=== PATIENT | female | born 1930 | race Caucasian/White ===

== ENCOUNTER → 2017-03-10 | Outpatient (CLI) | payer MEDICARE ==
--- NOTE | 2017-03-11 13:34 | MM ---
Reason for exam: screening (asymptomatic). Last mammogram was performed 1 year and 2 months ago. History: Patient is postmenopausal. Benign excisional biopsy of the left breast. Took hormonal contraceptives for 10 years beginning at age 41. Physical Findings: A clinical breast exam by your physician is recommended on an annual basis and results should be correlated with mammographic findings. MG Screening Mammo w CAD Bilateral CC and MLO view(s) were taken. Prior study comparison: January 12, 2016, bilateral MG 3d screening mammo w/cad. October 09, 2014, bilateral MG diagnostic mammo w CAD [facility]. The breast tissue is heterogeneously dense. This may lower the sensitivity of mammography. Asymmetric breast tissue greater in the left breast. No significant changes when compared with prior studies. ASSESSMENT: Benign, BI-RAD 2 RECOMMENDATION: Routine screening mammogram of both breasts in 1 year.
== END | disposition home or self-care (01) ==
LOC: RADMAMWWP 10:53
PROVIDERS: ATTEND Internal Medicine
DX: Z12.31 Encounter for screening mammogram for malignant neoplasm of breast (principal)
CPT/HCPCS: 77067

== ENCOUNTER 2017-12-09 07:05 | Emergency (ER) | payer MEDICARE ==
[2017-12-09 07:13] VITALS: BP 168/106; PULSE 75; RESP 18; TEMP 97.6
--- NOTE | 2017-12-09 07:37 | ED ---
Headache HPI - General Chief Complaint: Headache Stated Complaint: Headache, Confused last night Time Seen by Provider: 12/09/17 07:17 Source: RN notes reviewed, old records reviewed Mode of arrival: ambulatory Limitations: no limitations - History of Present Illness Initial Comments: This is an 87-year-old female the ER for evaluation. Patient comes in for evasive headache although no current headache. Patient concern for brain bleed. Patient states she's had similar symptoms in the past. She has nausea and some headache is last night, she states last time she had similar symptoms she did have a positive brain bleed. Patient currently denies headache. Denies abdominal pain nausea vomiting. Patient is recent diagnosis of UTI did start Cipro yesterday as well. MD Complaint: headache -: days(s) (1) Onset Description: now resolved Location: diffuse Severity: mild Severity scale (1-10): 3 Quality: aching Consistency: now resolved Improves With: nothing Worsens With: none Context: occurred at rest Associated Symptoms: nausea - Related Data Home Medications Medication Instructions Recorded Confirmed Metoprolol Tartrate [Lopressor] 12.5 mg PO BID-W/MEALS 12/11/13 12/09/17 Omeprazole [PriLOSEC] 40 mg PO HS 12/11/13 12/09/17 Acetaminophen Tab [Tylenol Tab] 500 mg PO Q6HR PRN 12/09/17 12/09/17 Aspirin EC [Ecotrin Low Dose] 162 mg PO HS 12/09/17 12/09/17 Regis/D3/Mag11/Zinc/Laundry Housekeeping Aide/Bryan/Bor 1 tab PO BID-W/MEALS 12/09/17 12/09/17 [Caltrate 600+D Plus Tablet] Ciprofloxacin HCl [Cipro] 250 mg PO Q12HR 12/09/17 12/09/17 Fluticasone Propionate 2 spray EA NOSTRIL HS 12/09/17 12/09/17 Levothyroxine Sodium [Synthroid] 100 mcg PO MOTUWETHFRSA 12/09/17 12/09/17 Levothyroxine Sodium [Synthroid] 200 mcg PO MADRIGAL 12/09/17 12/09/17 Loratadine [Claritin] 10 mg PO DAILY PRN 12/09/17 12/09/17 Vitamin B Complex 1 cap PO DAILY 12/09/17 12/09/17 Allergies Allergy/AdvReac Type Severity Reaction Status Date / Time Penicillins Allergy Swelling Verified 12/09/17 07:59 Review of Systems ROS Statement: Those systems with pertinent positive or pertinent negative responses have been documented in the HPI. ROS Other: All systems not noted in ROS Statement are negative. Past Medical History Past Medical History: Atrial Fibrillation, Hyperlipidemia, Hypertension, Thyroid Disorder Additional Past Medical History / Comment(s): hx of brain bleed. History of Any Multi-Drug Resistant Organisms: None Reported Past Surgical History: Orthopedic Surgery Additional Past Surgical History / Comment(s): THYROIDECTOMY, LEFT KNEE REPLACEMENT Past Psychological History: No Psychological Hx Reported Smoking Status: Former smoker Past Alcohol Use History: Daily Past Drug Use History: None Reported General Exam Limitations: no limitations General appearance: alert, in no apparent distress Head exam: Present: atraumatic, normocephalic, normal inspection Eye exam: Present: normal appearance, PERRL, EOMI. Absent: scleral icterus, conjunctival injection, periorbital swelling ENT exam: Present: normal exam, mucous membranes moist Neck exam: Present: normal inspection. Absent: tenderness, meningismus, lymphadenopathy Respiratory exam: Present: normal lung sounds bilaterally. Absent: respiratory distress, wheezes, rales, rhonchi, stridor Cardiovascular Exam: Present: regular rate, normal rhythm, normal heart sounds. Absent: systolic murmur, diastolic murmur, rubs, gallop, clicks GI/Abdominal exam: Present: soft, normal bowel sounds. Absent: distended, tenderness, guarding, rebound, rigid Extremities exam: Present: normal inspection, full ROM, normal capillary refill. Absent: tenderness, pedal edema, joint swelling, calf tenderness Back exam: Present: normal inspection Neurological exam: Present: alert, oriented X3, CN II-XII intact Psychiatric exam: Present: normal affect, normal mood Skin exam: Present: warm, dry, intact, normal color. Absent: rash Course Vital Signs 12/09/17 07:09 Temperature 97.6 F Pulse Rate 75 Respiratory 18 Rate Blood Pressure 168/106 O2 Sat by Pulse 98 Oximetry - Reevaluation(s) Reevaluation #1: Record is reviewed Spoke with patient at length regarding symptoms. Patient states and she denies any current headache, no neurological deficit. No active nausea vomiting. Patient spoke at length regarding CT findings, she is relieved to hear of findings. Patient states she feels good to go home Medical Decision Making - Medical Decision Making 87-year-old female the ER with nonspecific headache and nausea. Symptoms occurred last night are now resolved. She is on Cipro for outpatient or bladder , possible medication reaction although this time patient feels like symptoms are improved and patient can be discharged home - Radiology Data Radiology results: report reviewed (CT brain negative for acute disease), image reviewed Disposition Clinical Impression: Headache Disposition: HOME SELF-CARE Condition: Good Instructions: Acute Headache (ED) Is patient prescribed a controlled substance at d/c from ED?: No Referrals: Gina Saavedra MD [Primary Care Provider] - 1-2 days
[2017-12-09] MEDS: SODIUM CHLORIDE 0.9% 1,000 ML IV STA ×2 (07:41)
--- NOTE | 2017-12-09 07:48 | CT ---
EXAMINATION TYPE: CT brain wo con DATE OF EXAM: 12/09/2017 COMPARISON: 01/21/2014 INDICATION: Headache DLP: 1152.4 mGycm, Automated exposure control for dose reduction was used. CONTRAST: None CT of the brain is performed utilizing 3 mm thick sections through the posterior fossa and 3 mm thick sections through the remaining calvarium. Study is performed within 24 hours of arrival to the hosp ital. No abnormal hyperdensity is present to suggest an acute intracranial hemorrhage. No mass lesion is evident. No acute infarcts are evident. Periventricular white matter hypodensity is present, likely on the bas is of chronic white matter ischemic changes. No significant interval changes evident. Ventricles and sulci are appropriate for the patient age. Paranasal sinuses within the [id number] are clear. Right mastoid air cells are opacified compatibl e with right mastoiditis. Left mastoid air cells are clear. IMPRESSIONS: 1. Periventricular white matter ischemic type changes with age-related atrophy. 2. Correlate for right mastoiditis
== END 2017-12-09 08:32 | disposition home or self-care (01) ==
LOC: EC 07:05
DX: R51 Headache (principal); R11.0 Nausea; I48.91 Unspecified atrial fibrillation; I10 Essential (primary) hypertension; Z79.82 Long term (current) use of aspirin; Z79.51 Long term (current) use of inhaled steroids; Z79.899 Other long term (current) drug therapy; Z88.0 Allergy status to penicillin; Z87.891 Personal history of nicotine dependence; Z96.652 Presence of left artificial knee joint
CPT/HCPCS: 70450; 99284

== ENCOUNTER 2018-01-01 20:45 | Emergency (ER) | payer MEDICARE ==
[2018-01-01 20:51] VITALS: TEMP 97.7
--- NOTE | 2018-01-01 21:21 | ED ---
Fall HPI - General Chief Complaint: Fall Stated Complaint: Fell Time Seen by Provider: 01/01/18 21:07 Source: patient Mode of arrival: wheelchair - History of Present Illness Initial Comments: 87-year-old female patient presents to the emergency department today for evaluation of left wrist pain and low back pain after expressing a fall today. Patient states around 1 PM she lost her balance and fell down 2 steps while she was trying to put up [place] lights. Patient states that she injured her left wrist and has been having increased pain to her low back. Patient denies hitting her head or losing consciousness with the fall. States that she is having some numbness and tingling to the thumb and forefinger on the left hand. She denies any pain radiation from her back to her legs. Denies any numbness , tingling, saddle anesthesia, loss of bowel or bladder control. Denies any other injuries. Patient denies any headache, neck pain, chest pain, shortness of breath, dizziness, weakness, abdominal pain, nausea, vomiting, or difficulties with bowel movements or urination. - Related Data Home Medications Medication Instructions Recorded Confirmed Metoprolol Tartrate [Lopressor] 12.5 mg PO BID-W/MEALS 12/11/13 12/09/17 Omeprazole [PriLOSEC] 40 mg PO HS 12/11/13 12/09/17 Acetaminophen Tab [Tylenol Tab] 500 mg PO Q6HR PRN 12/09/17 12/09/17 Aspirin EC [Ecotrin Low Dose] 162 mg PO HS 12/09/17 12/09/17 Regis/D3/Mag11/Zinc/Diver Tender/Bryan/Bor 1 tab PO BID-W/MEALS 12/09/17 12/09/17 [Caltrate 600+D Plus Tablet] Ciprofloxacin HCl [Cipro] 250 mg PO Q12HR 12/09/17 12/09/17 Fluticasone Propionate 2 spray EA NOSTRIL HS 12/09/17 12/09/17 Levothyroxine Sodium [Synthroid] 100 mcg PO MOTUWETHFRSA 12/09/17 12/09/17 Levothyroxine Sodium [Synthroid] 200 mcg PO MADRIGAL 12/09/17 12/09/17 Loratadine [Claritin] 10 mg PO DAILY PRN 12/09/17 12/09/17 Vitamin B Complex 1 cap PO DAILY 12/09/17 12/09/17 Allergies Allergy/AdvReac Type Severity Reaction Status Date / Time ciprofloxacin [From Cipro] Allergy Unknown Verified 01/01/18 20:51 Penicillins Allergy Swelling Verified 01/01/18 20:51 Review of Systems ROS Statement: Those systems with pertinent positive or pertinent negative responses have been documented in the HPI. ROS Other: All systems not noted in ROS Statement are negative. Past Medical History Past Medical History: Atrial Fibrillation, Hyperlipidemia, Hypertension, Thyroid Disorder Additional Past Medical History / Comment(s): hx of brain bleed. History of Any Multi-Drug Resistant Organisms: None Reported Past Surgical History: Orthopedic Surgery Additional Past Surgical History / Comment(s): THYROIDECTOMY, LEFT KNEE REPLACEMENT Past Psychological History: No Psychological Hx Reported Smoking Status: Former smoker Past Alcohol Use History: Daily Past Drug Use History: None Reported General Exam Limitations: no limitations General appearance: alert, in no apparent distress, other (This is a well- developed, well-nourished elderly female patient in no acute distress. Vital signs upon presentation are temperature 97.7F, pulse 103, respirations 18, blood pressure 155/95, pulse ox 96% on room air.) Eye exam: Present: normal appearance, PERRL, EOMI. Absent: scleral icterus, conjunctival injection, periorbital swelling ENT exam: Present: normal exam, normal oropharynx, mucous membranes moist Neck exam: Present: normal inspection, full ROM, other (Nontender, no step-off, no deformity to firm midline palpation of the posterior cervical spine. Full range of motion without pain or limitation.). Absent: tenderness, meningismus, lymphadenopathy Respiratory exam: Present: normal lung sounds bilaterally. Absent: respiratory distress, wheezes, rales, rhonchi, stridor Cardiovascular Exam: Present: regular rate, normal rhythm, normal heart sounds. Absent: systolic murmur, diastolic murmur, rubs, gallop, clicks GI/Abdominal exam: Present: soft, normal bowel sounds. Absent: distended, tenderness, guarding, rebound, rigid Extremities exam: Present: full ROM, tenderness (Tenderness over the radial aspect of the left wrist), normal capillary refill, other (Patient has swelling and ecchymosis noted over the radial aspect of the left wrist. She has no anatomical snuffbox tenderness. Skin is otherwise pink, warm, and dry. Cap refills less than 3 seconds. Radial pulses 2+ and equal bilaterally.). Absent : normal inspection, pedal edema, joint swelling, calf tenderness Back exam: Present: normal inspection, vertebral tenderness (Lumbar tenderness) , other (No surface trauma noted to the back.) Neurological exam: Present: alert, oriented X3, CN II-XII intact Psychiatric exam: Present: normal affect, normal mood Skin exam: Present: warm, dry, intact, normal color. Absent: rash Course Vital Signs 01/01/18 01/01/18 20:47 22:29 Temperature 97.7 F Pulse Rate 103 H 73 Respiratory 18 20 Rate Blood Pressure 155/95 164/103 O2 Sat by Pulse 96 94 L Oximetry Medical Decision Making - Medical Decision Making 87-year-old female patient presented to the emergency department today for evaluation of left wrist pain and low back pain after expressing a fall at home. Physical examination did reveal ecchymosis and swelling to the left wrist especially over the radial aspect. Patient had no anatomical snuffbox tenderness. Neurovascular status was intact. X-rays of the left ear showed no evidence for acute fracture dislocation. Patient is also reporting increased low back pain, she had no lumbar spinal tenderness however x-rays were performed and showed no evidence of fractures. Did discuss findings and results with the patient. She is still reporting some numbness and tingling to the right thumb and index finger. We did place her in an [place] wrap, she is instructed to follow-up with orthopedics for further evaluation of this in 1-2 days. She does have a prescription for [place] at home which she is encouraged to use if necessary. She is educated regarding ice and elevation. Return parameters were discussed in detail. She verbalizes understanding and agrees this plan. - Radiology Data Radiology results: report reviewed, image reviewed Left wrist x-rays were obtained. Report was reviewed in its entirety. Impression by Dr. Marcial reveals no acute fracture dislocation the left wrist. 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 4 views of the lumbosacral spine are obtained. Report was reviewed in its entirety. Impression by Dr. Marcial shows diffuse osseous demineralization. Grade 1 anterolisthesis of L4 on L5, moderate multilevel degenerative disc disease, and there is slight levoscoliotic curvature of the thoracolumbar junction. No acute fracture seen in the lumbar spine. Disposition Clinical Impression: Left wrist sprain, Contusion of left wrist, Low back strain Disposition: HOME SELF-CARE Condition: Good Instructions: Fall Prevention for Older Adults (ED), Low Back Strain (ED), Wrist Sprain (ED) Additional Instructions: Apply ice to the painful areas. Keep left wrist elevated. Follow-up with orthopedic brace maker in 2 days if symptoms are not improved. The phone number for the orthopedic brace maker has been provided below. Return immediately for any new, worsening, or concerning symptoms. Is patient prescribed a controlled substance at d/c from ED?: No Referrals: Gina Saavedra MD [Primary Care Provider] - 1-2 days Geraldo Silva MD [STAFF PHYSICIAN] - 1-2 days Time of Disposition: 22:52
--- NOTE | 2018-01-01 21:41 | XR ---
EXAMINATION TYPE: XR lumbosacral spine min 4V DATE OF EXAM: 01/01/2018 CLINICAL HISTORY: Fall and back pain TECHNIQUE: Frontal, lateral, and oblique images of the lumbar spine are obtained. COMPARISON: None FINDINGS: There is diffuse osseous demineralization. There are 5 lumbar type vertebral bodies identi fied. There is grade 1 anterolisthesis of L4 on L5.. Vertebral body heights and disk space heights ar e within normal limits. Multilevel moderate degenerative changes of the spine are seen as facet arthr opathy, intervertebral disc space narrowing and anterior osteophytes. The overlying soft tissue appea rs unremarkable. Extensive atherosclerosis is seen in the abdominal aorta and its branches. Oblique i mages suggest mild neural foraminal narrowing at L3-L4 on the right and left. IMPRESSION: Diffuse osseous. Grade 1 anterolisthesis of L4 on L5, moderate multilevel degenerative di sc disease, and there is slight levoscoliotic curvature of the thoracolumbar junction. No acute fract ure is seen in the lumbar spine.
--- NOTE | 2018-01-01 21:47 | XR ---
EXAMINATION TYPE: XR wrist complete LT DATE OF EXAM: 01/01/2018 CLINICAL HISTORY: Left wrist pain after fall down the stairs TECHNIQUE: Frontal, lateral and oblique images of the left wrist are obtained. Scaphoid view was als o obtained. COMPARISON: None FINDINGS: There is diffuse osseous demineralization. There is no acute fracture/dislocation evident i n the left wrist. The joint spaces in the left wrist demonstrate extensive arthropathy at the radial carpal carpal interspaces and carpometacarpal joint. Faint calcification of the triangular fibrocart ilage is also seen, likely on a degenerative basis.. The overlying soft tissue appears unremarkable. IMPRESSION: There is no acute fracture or dislocation in the left wrist. Diffuse osseous demineraliz ation and left wrist arthropathy are seen.
[2018-01-01 22:31] VITALS: BP 164/103; PULSE 73; RESP 20
== END 2018-01-01 23:11 | disposition home or self-care (01) ==
LOC: EC 20:45
DX: S39.012A Strain of muscle, fascia and tendon of lower back, initial encounter (principal); S60.212A Contusion of left wrist, initial encounter; I48.91 Unspecified atrial fibrillation; E78.5 Hyperlipidemia, unspecified; I10 Essential (primary) hypertension; E07.9 Disorder of thyroid, unspecified; Z87.891 Personal history of nicotine dependence; Z79.82 Long term (current) use of aspirin; Z79.899 Other long term (current) drug therapy; Z88.0 Allergy status to penicillin; Z88.1 Allergy status to other antibiotic agents; Z96.652 Presence of left artificial knee joint; W10.9XXA Fall (on) (from) unspecified stairs and steps, initial encounter; Y92.009 Unspecified place in unspecified non-institutional (private) residence as the place of occurrence of the external cause
CPT/HCPCS: 72110; 99283

== ENCOUNTER 2018-09-02 16:45 | Inpatient (IN) | payer MEDICARE ==
[2018-09-02] MEDS ORDERED: ASPIRIN 81 MG PO STA (17:09)
--- NOTE | 2018-09-02 17:34 | ED ---
General Adult HPI - General Chief complaint: Altered Mental Status Stated complaint: CONFUSION Time Seen by Provider: 09/02/18 17:00 Source: patient Limitations: no limitations - History of Present Illness Initial comments: Patient is an 88-year-old female presents with a chief complaint of intermittent confusion. She is here with her neighbor who states that this morning she was out in her yard yelling for help because she forgot how to turn the shower off. Patient states she is intermittently forgetting how to perform simple tasks. Patient denies any pain, focal neurological deficit, she states she has been mildly nauseated but denies any other review of systems. - Related Data Home Medications Medication Instructions Recorded Confirmed Metoprolol Tartrate [Lopressor] 12.5 mg PO BID-W/MEALS 12/11/13 09/02/18 Omeprazole [PriLOSEC] 40 mg PO HS 12/11/13 09/02/18 Aspirin EC [Ecotrin Low Dose] 162 mg PO HS 12/09/17 09/02/18 Regis/D3/Mag11/Zinc/Procurement Internship/Bryan/Bor 1 tab PO BID-W/MEALS 12/09/17 09/02/18 [Caltrate 600+D Plus Tablet] Fluticasone Propionate 2 spray EA NOSTRIL HS 12/09/17 09/02/18 Levothyroxine Sodium [Synthroid] 100 mcg PO MOTUWETHFRSA 12/09/17 09/02/18 Levothyroxine Sodium [Synthroid] 200 mcg PO MADRIGAL 12/09/17 09/02/18 Vitamin B Complex 1 cap PO DAILY 12/09/17 09/02/18 Albuterol Inhaler [Ventolin Hfa 1 - 2 puff INHALATION RT-HS 09/02/18 09/02/18 Inhaler] Ergocalciferol (Vitamin D2) 50,000 unit PO TU 09/02/18 09/02/18 [Drisdol] Losartan [Cozaar] 50 mg PO DAILY 09/02/18 09/02/18 Mirtazapine [Remeron] 15 mg PO DAILY@1900 09/02/18 09/02/18 Multivit-Min/FA/Lycopen/Lutein 1 tab PO W/LUNCH 09/02/18 09/02/18 [Centrum Silver Tablet] Spironolact/Hydrochlorothiazid 1 tab PO DAILY 09/02/18 09/02/18 [Aldactazide 25-25 MG] Allergies Allergy/AdvReac Type Severity Reaction Status Date / Time ciprofloxacin [From Cipro] Allergy Unknown Verified 09/02/18 18:00 Penicillins Allergy Swelling Verified 09/02/18 18:00 Review of Systems ROS Statement: Those systems with pertinent positive or pertinent negative responses have been documented in the HPI. ROS Other: All systems not noted in ROS Statement are negative. Gastrointestinal: Reports: nausea Neurological: Reports: confusion Past Medical History Past Medical History: Atrial Fibrillation, Hyperlipidemia, Hypertension, Thyroid Disorder Additional Past Medical History / Comment(s): hx of brain bleed. History of Any Multi-Drug Resistant Organisms: None Reported Past Surgical History: Orthopedic Surgery Additional Past Surgical History / Comment(s): THYROIDECTOMY, LEFT KNEE REPLACEMENT Past Psychological History: No Psychological Hx Reported Smoking Status: Former smoker Past Alcohol Use History: Daily Past Drug Use History: None Reported General Exam Limitations: no limitations General appearance: alert, in no apparent distress Head exam: Present: atraumatic, normocephalic Eye exam: Present: normal appearance, PERRL, EOMI ENT exam: Present: normal exam Neck exam: Present: normal inspection Respiratory exam: Present: normal lung sounds bilaterally. Absent: respiratory distress, wheezes Cardiovascular Exam: Present: regular rate, normal rhythm GI/Abdominal exam: Present: soft. Absent: distended, tenderness Rectal exam: Present: deferred Extremities exam: Present: normal inspection Back exam: Present: normal inspection Neurological exam: Present: alert, oriented X3 Psychiatric exam: Present: normal affect, normal mood Skin exam: Present: warm, dry, intact Course Vital Signs 09/02/18 16:50 Temperature 98.3 F Pulse Rate 121 H Respiratory 20 Rate Blood Pressure 147/85 O2 Sat by Pulse 96 Oximetry Medical Decision Making - Medical Decision Making Patient presents with chief complaint of intermittent confusion. On initial evaluation, vital signs are stable, patient is in no acute distress. EKG perfo rmed at 1702 shows atrial fibrillation with a rate of 95 bpm, seconds are otherwise within normal limits, no acute ischemic findings. Patient reevaluated basic labs including computed tomography scan of the head, chest x-ray, urinalysis, and cardiac enzymes. Laboratory evaluation of this patient shows hyponatremia and hyperkalemia. Hyponatremia may be causing the patient's intermittent confusion. There is no evidence of infection or urinary tract infection. Lab results discussed with the patient, and her family. They're agreeable to admission. Patient was given IV hydration. Case discussed with the admitting team, they're agreeable to admission. Further management per - Lab Data Result diagrams: 09/02/18 17:08 09/02/18 17:08 Lab Results 09/02/18 09/02/18 09/02/18 Range/Units 17:08 17:08 17:08 WBC 5.9 (3.8-10.6) k/uL RBC 4.35 (3.80-5.40) m/uL Hgb 14.3 (11.4-16.0) gm/dL Hct 42.8 (34.0-46.0) % MCV 98.4 (80.0-100.0) fL MCH 32.9 (25.0-35.0) pg MCHC 33.4 (31.0-37.0) g/dL RDW 14.5 (11.5-15.5) % Plt Count 193 (150-450) k/uL Neutrophils % 78 % Lymphocytes % 11 % Monocytes % 6 % Eosinophils % 2 % Basophils % 0 % Neutrophils # 4.6 (1.3-7.7) k/uL Lymphocytes # 0.6 L (1.0-4.8) k/uL Monocytes # 0.4 (0-1.0) k/uL Eosinophils # 0.1 (0-0.7) k/uL Basophils # 0.0 (0-0.2) k/uL Sodium 124 L (137-145) mmol/L Potassium 5.3 H (3.5-5.1) mmol/L Chloride 90 L (98-107) mmol/L Carbon Dioxide 22 (22-30) mmol/L Anion Gap 12 mmol/L BUN 23 H (7-17) mg/dL Creatinine 0.92 (0.52-1.04) mg/dL Est GFR (CKD-EPI)AfAm 65 (>60 ml/min/1.73 sqM) Est GFR (CKD-EPI)NonAf 56 (>60 ml/min/1.73 sqM) Glucose 123 H (74-99) mg/dL Calcium 9.8 (8.4-10.2) mg/dL Total Bilirubin 1.2 (0.2-1.3) mg/dL AST 35 (14-36) U/L ALT 27 (9-52) U/L Alkaline Phosphatase 90 (38-126) U/L Troponin I (0.000-0.034) ng/mL NT-Pro-B Natriuret Pep 2070 pg/mL Total Protein 7.4 (6.3-8.2) g/dL Albumin 4.4 (3.5-5.0) g/dL Urine Color Urine Appearance (Clear) Urine pH (5.0-8.0) Ur Specific [place] (1.001-1.035) Urine Protein (Negative) Urine Glucose (UA) (Negative) Urine Ketones (Negative) Urine Blood (Negative) Urine Nitrite (Negative) Urine Bilirubin (Negative) Urine Urobilinogen (<2.0) mg/dL Ur Leukocyte Esterase (Negative) 09/02/18 09/02/18 Range/Units 17:08 17:27 WBC (3.8-10.6) k/uL RBC (3.80-5.40) m/uL Hgb (11.4-16.0) gm/dL Hct (34.0-46.0) % MCV (80.0-100.0) fL MCH (25.0-35.0) pg MCHC (31.0-37.0) g/dL RDW (11.5-15.5) % Plt Count (150-450) k/uL Neutrophils % % Lymphocytes % % Monocytes % % Eosinophils % % Basophils % % Neutrophils # (1.3-7.7) k/uL Lymphocytes # (1.0-4.8) k/uL Monocytes # (0-1.0) k/uL Eosinophils # (0-0.7) k/uL Basophils # (0-0.2) k/uL Sodium (137-145) mmol/L Potassium (3.5-5.1) mmol/L Chloride (98-107) mmol/L Carbon Dioxide (22-30) mmol/L Anion Gap mmol/L BUN (7-17) mg/dL Creatinine (0.52-1.04) mg/dL Est GFR (CKD-EPI)AfAm (>60 ml/min/1.73 sqM) Est GFR (CKD-EPI)NonAf (>60 ml/min/1.73 sqM) Glucose (74-99) mg/dL Calcium (8.4-10.2) mg/dL Total Bilirubin (0.2-1.3) mg/dL AST (14-36) U/L ALT (9-52) U/L Alkaline Phosphatase (38-126) U/L Troponin I <0.012 (0.000-0.034) ng/mL NT-Pro-B Natriuret Pep pg/mL Total Protein (6.3-8.2) g/dL Albumin (3.5-5.0) g/dL Urine Color Yellow Urine Appearance Clear (Clear) Urine pH 6.5 (5.0-8.0) Ur Specific [place] 1.012 (1.001-1.035) Urine Protein Negative (Negative) Urine Glucose (UA) Negative (Negative) Urine Ketones Negative (Negative) Urine Blood Negative (Negative) Urine Nitrite Negative (Negative) Urine Bilirubin Negative (Negative) Urine Urobilinogen 3.0 (<2.0) mg/dL Ur Leukocyte Esterase Negative (Negative) Disposition Clinical Impression: Altered mental status, Dehydration, Hyponatremia, Hyperkalemia, Alcoholic intoxication Disposition: ADMITTED IP TO THIS [facility] Condition: Good Is patient prescribed a controlled substance at d/c from ED?: No Decision to Admit Reason: Admit from EC - Out of Hospital Transfer - Req. Specs Out of Hospital Transfer - Requested Specifics: Other Non-Acute
[2018-09-02 17:39] LABS: Appearance,Urine Clear (Clear); Bilirubin,Urine Negative (Negative); Blood,Urine Negative (Negative); Color,Urine Yellow; Glucose,Urine (UA) Negative (Negative); Ketones,Urine Negative (Negative); Leukocyte Esterase,Urine Negative (Negative); Nitrite,Urine Negative (Negative); PH, Urine 6.5 (5.0-8.0); Protein,Urine Negative (Negative); Specific Gravity,Urine 1.012 (1.001-1.035)
[2018-09-02 17:41] LABS: Basophils % (A) 0 %; Eosinophils # (A) 0.1 k/uL (0-0.7); Eosinophils % (A) 2 %; HCT 42.8 % (34.0-46.0); HGB 14.3 gm/dL (11.4-16.0); Lymphocytes # (A) 0.6 k/uL (1.0-4.8); Lymphocytes % (A) 11 %; MCH 32.9 pg (25.0-35.0); MCHC 33.4 g/dL (31.0-37.0); MCV 98.4 fL (80.0-100.0); Mean Platelet Volume 9.6; Monocytes # (A) 0.4 k/uL (0-1.0); Monocytes % (A) 6 %; Neutrophils # (A) 4.6 k/uL (1.3-7.7); Neutrophils % (A) 78 %; Platelet Count 193 k/uL (150-450); RBC 4.35 m/uL (3.80-5.40); RDW 14.5 % (11.5-15.5); WBC 5.9 k/uL (3.8-10.6)
[2018-09-02 18:02] LABS: Albumin 4.4 g/dL (3.5-5.0); Calcium 9.8 mg/dL (8.4-10.2); Potassium 5.3 mmol/L (3.5-5.1); Total Bilirubin 1.2 mg/dL (0.2-1.3); Total Protein 7.4 g/dL (6.3-8.2)
--- NOTE | 2018-09-02 18:26 | CT ---
EXAMINATION TYPE: CT brain wo con DATE OF EXAM: 09/02/2018 COMPARISON: 12/09/2017 HISTORY: 88-year-old female with confusion TECHNIQUE: Examination was done in axial plane without intravenous contrast. Coronal and sagittal r econstructions performed. CT DLP: 1078.4 mGycm Automated exposure control for dose reduction was used. FINDINGS: There is no evidence of acute intracranial hemorrhage, acute ischemic changes, mass, mass-effect, or extra-axial fluid collection. There is no effacement of cerebral sulci or basal subarachnoid cister ns. There is no hydrocephalus. There is no midline shift. Gallardo-white matter distinction is preserv ed. Partially visualized air-fluid level right maxillary sinus. Fluid in the right mastoid air cells. Moderate cerebral cortical atrophy and some moderate patchy white matter hypodensities in both cerebr al hemispheres IMPRESSION: 1. Moderate atrophy and changes of chronic small vessel ischemic disease. No acute intracranial abnor mality seen. 2. Partially visualized air-fluid level right maxillary sinuses can be seen with acute sinusitis. 3. Trapped fluid right mastoid air cells. Correlate for any mastoid pain to exclude mastoiditis.
--- NOTE | 2018-09-02 19:02 | XR ---
EXAMINATION TYPE: XR chest 2V DATE OF EXAM: 09/02/2018 COMPARISON: None HISTORY: 88-year-old female with a pain and confusion TECHNIQUE: AP and lateral views FINDINGS: The heart is moderately enlarged. Diffuse interstitial/vascular prominence. No consolidation or pleur al effusion seen. IMPRESSION: Moderate cardiomegaly with interstitial/vascular prominence. Correlate to exclude mild pulmonary vasc ular congestion. No pulmonary edema or focal infiltrate.
[2018-09-02] MEDS ORDERED: SODIUM CHLORIDE 0.9% 1,000 ML IV ONE (19:28)
[2018-09-02] MEDS ORDERED: NALOXONE 0.4 MG/ML 1 ML VIAL IV PRN (20:36)
[2018-09-03] MEDS: SODIUM CHLORIDE 0.9% 1,000 ML IV SCH ×2 (00:36→18:05)
[2018-09-03 07:37] LABS: Basophils % (A) 1 %; Eosinophils # (A) 0.2 k/uL (0-0.7); Eosinophils % (A) 4 %; HCT 39.5 % (34.0-46.0); HGB 12.9 gm/dL (11.4-16.0); Lymphocytes # (A) 1.3 k/uL (1.0-4.8); Lymphocytes % (A) 27 %; MCH 32.3 pg (25.0-35.0); MCHC 32.7 g/dL (31.0-37.0); MCV 98.6 fL (80.0-100.0); Mean Platelet Volume 8.7; Monocytes # (A) 0.3 k/uL (0-1.0); Monocytes % (A) 7 %; Neutrophils # (A) 2.8 k/uL (1.3-7.7); Neutrophils % (A) 59 %; Platelet Count 162 k/uL (150-450); RBC 4.01 m/uL (3.80-5.40); RDW 13.3 % (11.5-15.5); WBC 4.8 k/uL (3.8-10.6)
[2018-09-03 07:54] LABS: Calcium 9.2 mg/dL (8.4-10.2); Potassium 4.5 mmol/L (3.5-5.1)
[2018-09-03] MEDS ORDERED: LEVOTHYROXINE 100 MCG TAB PO SCH (11:30)
--- NOTE | 2018-09-03 11:59 | P.HPIM ---
History of Present Illness H&P Date: 09/03/18 Gabriella Francis, is an 88 year old female who presented to [facility] emergency room with the chief complaints of confusion and mental status changes. Apparently symptoms started less than 24 hours prior to admission, patient stated that she was confused she took a shower but was unable to turn the water off she went out in her front yard yelling she was helped by her neighbor who suggested that she should come to the hospital. In the emergency room patient was found to have significant hyponatremia with a sodium of 124 BUN was slightly elevated at 23 otherwise no significant findings. Computed tomography scan of the brain revealed moderate atrophy and changes of chronic small vessel disease without any acute changes, there was evidence of air fluid level in the right maxillary sinus and fluid in the right mastoid air cells. Past Medical History Past Medical History: Atrial Fibrillation, Hyperlipidemia, Hypertension, Thyroid Disorder Additional Past Medical History / Comment(s): hx of brain bleed. History of Any Multi-Drug Resistant Organisms: None Reported Past Surgical History: Orthopedic Surgery Additional Past Surgical History / Comment(s): THYROIDECTOMY, LEFT KNEE REPLACEMENT Past Psychological History: No Psychological Hx Reported Smoking Status: Former smoker Past Alcohol Use History: Daily Past Drug Use History: None Reported Medications and Allergies Home Medications Medication Instructions Recorded Confirmed Type Metoprolol Tartrate [Lopressor] 12.5 mg PO BID-W/MEALS 12/11/13 09/02/18 History Omeprazole [PriLOSEC] 40 mg PO HS 12/11/13 09/02/18 History Aspirin EC [Ecotrin Low Dose] 162 mg PO HS 12/09/17 09/02/18 History Regis/D3/Mag11/Zinc/Medical Screener/Bryan/Bor 1 tab PO BID-W/MEALS 12/09/17 09/02/18 History [Caltrate 600+D Plus Tablet] Fluticasone Propionate 2 spray EA NOSTRIL HS 12/09/17 09/02/18 History Levothyroxine Sodium [Synthroid] 100 mcg PO MOTUWETHFRSA 12/09/17 09/02/18 History Levothyroxine Sodium [Synthroid] 200 mcg PO MADRIGAL 12/09/17 09/02/18 History Vitamin B Complex 1 cap PO DAILY 12/09/17 09/02/18 History Albuterol Inhaler [Ventolin Hfa 1 - 2 puff INHALATION RT-HS 09/02/18 09/02/18 History Inhaler] Ergocalciferol (Vitamin D2) 50,000 unit PO TU 09/02/18 09/02/18 History [Drisdol] Losartan [Cozaar] 50 mg PO DAILY 09/02/18 09/02/18 History Mirtazapine [Remeron] 15 mg PO DAILY@1900 09/02/18 09/02/18 History Multivit-Min/FA/Lycopen/Lutein 1 tab PO W/LUNCH 09/02/18 09/02/18 History [Centrum Silver Tablet] Spironolact/Hydrochlorothiazid 1 tab PO DAILY 09/02/18 09/02/18 History [Aldactazide 25-25 MG] Allergies Allergy/AdvReac Type Severity Reaction Status Date / Time ciprofloxacin [From Cipro] Allergy Unknown Verified 09/02/18 18:00 Penicillins Allergy Swelling Verified 09/02/18 18:00 Physical Exam Vitals: Vital Signs Temp Pulse Pulse Resp BP BP Pulse Ox 09/03/18 08:58 98.7 F 75 16 105/60 96 09/03/18 08:50 98.7 F 77 16 105/60 97 09/03/18 03:20 98.6 F 68 17 105/61 96 09/02/18 22:43 98.2 F 95 19 151/86 97 09/02/18 22:18 98.3 F 63 18 119/79 97 09/02/18 16:50 98.3 F 121 H 20 147/85 96 Intake and Output 09/02/18 09/03/18 09/03/18 22:59 06:59 14:59 Intake Total 400 480 Balance 400 480 Intake: Intake, IV Titration 400 Amount Sodium Chloride 0.9% 1, 400 000 ml @ 50 mls/hr IV . Q20H [facility] Rx#:[id number] Oral 480 Other: Voiding Method Toilet # Voids 2 1 Weight 77.111 kg In general patient is alert more oriented in no apparent distress HEENT head normocephalic and atraumatic Neck is supple no JVD no goiter no lymphadenopathy Chest exam reveals a few scattered rhonchi no wheezing Cardiac exam reveals regular heart sounds S1 and S2 no gallops no murmurs Abdomen is soft nontender no organomegaly with normal bowel sounds Extremity exam reveals no edema no cyanosis or clubbing Neurological examination reveals no gross focal deficit mental status has improved significantly since admission Results CBC & Chem 7: 09/03/18 07:07 09/03/18 07:07 Labs: Abnormal Lab Results - Last 24 Hours (Table) 09/02/18 09/02/18 09/03/18 Range/Units 17:08 17:08 07:07 Lymphocytes # 0.6 L (1.0-4.8) k/uL Sodium 124 L 127 L (137-145) mmol/L Potassium 5.3 H (3.5-5.1) mmol/L Chloride 90 L (98-107) mmol/L Carbon Dioxide 20 L (22-30) mmol/L BUN 23 H (7-17) mg/dL Glucose 123 H (74-99) mg/dL Thrombosis Risk Factor Assmnt - Choose All That Apply Any of the Below Risk Factors Present?: Yes Each Factor Represents 1 point: Obesity (BMI >25) Other Risk Factors: No Each Risk Factor Represents 3 Points: Age 75 years or older Other congenital or acquired thrombophilia - If yes, enter type in comment: No Thrombosis Risk Factor Assessment Total Risk Factor Score: 4 Thrombosis Risk Factor Assessment Level: Moderate Risk Assessment and Plan Plan: #1 severe hyponatremia, with evidence of dehydration, likely related to the hot weather and the use of diuretics, at this time diuretics are on hold, patient was started on IV normal saline, sodium is up from 124-127 today Will monitor closely #2 dehydration #3 mental status changes likely related to hyponatremia #4 acute versus chronic sinusitis with air-fluid collection in the right maxillary sinus. #5 underlying history of hypertension At this time continue with IV normal saline continue to was hold diuretics Will monitor closely Subcu Lovenox for DVT prophylaxis while hospitalized Will follow in a.m.
[2018-09-03] MEDS: MULTIVITAMINS, THERA 1 EACH TAB PO SCH (12:32)
[2018-09-03] MEDS: ENOXAPARIN 40 MG/0.4 ML SYRINGE SQ SCH (12:32)
[2018-09-03] MEDS ORDERED: BOR PO SCH (17:30)
[2018-09-03] MEDS ORDERED: ZINC PO SCH (17:30)
[2018-09-03] MEDS ORDERED: D3 PO SCH (17:30)
[2018-09-03] MEDS ORDERED: MAG11 PO SCH (17:30)
[2018-09-03] MEDS ORDERED: MANG PO SCH (17:30)
[2018-09-03] MEDS ORDERED: CAL PO SCH (17:30)
[2018-09-03] MEDS ORDERED: COP PO SCH (17:30)
[2018-09-03] MEDS: METOPROLOL TARTRATE 12.5 MG TAB PO SCH (18:04)
[2018-09-03] MEDS ORDERED: MIRTAZAPINE 15 MG TAB PO SCH (19:00)
[2018-09-03] MEDS ORDERED: ALBUTEROL NEBULIZED 2.5 MG/3 ML INHALATION SCH (20:00)
[2018-09-03] MEDS ORDERED: PANTOPRAZOLE 40 MG TABLET PO SCH (21:00)
[2018-09-03] MEDS ORDERED: FLUTICASONE 50MCG/SPRAY NASAL 16GM EA NOSTRIL SCH (21:00)
[2018-09-03] MEDS ORDERED: ASPIRIN 81 MG PO SCH (21:00)
[2018-09-04] MEDS ORDERED: LEVOTHYROXINE 100 MCG TAB PO SCH (06:30)
[2018-09-04 07:36] VITALS: BP 120/73; PULSE 61; RESP 18; TEMP 97.4
[2018-09-04] MEDS ORDERED: NON-FORMULARY DRUG (Vitamin B Complex [Vitamin B Complex] 1 CAP) PO SCH (09:00)
[2018-09-04] MEDS ORDERED: LOSARTAN 50 MG TAB PO SCH (09:00)
[2018-09-04] MEDS: MULTIVITAMINS, THERA 1 EACH TAB PO SCH (10:12)
[2018-09-04] MEDS: METOPROLOL TARTRATE 12.5 MG TAB PO SCH (10:12)
[2018-09-04] MEDS: ENOXAPARIN 40 MG/0.4 ML SYRINGE SQ SCH (10:13)
--- NOTE | 2018-09-04 10:33 | P.NPCON ---
History of Present Illness - Reason for Consult hyponatremia - History of Present Illness Reason for consultation: Hyponatremia History of present illness: Patient is a 88-year-old female seen in consultation for hyponatremia. Patient's sodium level was 124 on admission. She is currently maintained on n ormal saline at 50 mL an hour. Sodium level came up to 127 as of yesterday. Labs from today are pending. Patient was brought to the hospital as she was confused and yelling outside as she forgot how to turn off her shower. Currently she is awake and alert and her mentation seems to be at baseline. She admits to good urine output. No hematuria or dysuria. Denies use of nonsteroidals. Denies drinking excessive amounts of water. However she does have history of high blood pressure and is maintained on Aldactazide outpatient. Denies chest pain or shortness of breath. No edema. Hemodynamically stable. No history of diabetes. Denies family history of renal disease. Vital signs are stable. General: The patient appeared well nourished and normally developed. HEENT: Head exam is unremarkable. Neck is without jugular venous distension. LUNGS: Lungs are clear to auscultation and percussion. Breath sounds decreased. HEART: Rate and Rhythm are regular. First and second heart sounds normal. No murmurs, rubs or gallops. ABDOMEN: Abdominal exam reveals normal bowel sounds. Non-tender and non- distended. No evidence of peritonitis. EXTREMITITES: No clubbing, cyanosis, or edema. Past Medical History Past Medical History: Atrial Fibrillation, Hyperlipidemia, Hypertension, Thyroid Disorder Additional Past Medical History / Comment(s): hx of brain bleed. History of Any Multi-Drug Resistant Organisms: None Reported Past Surgical History: Orthopedic Surgery Additional Past Surgical History / Comment(s): THYROIDECTOMY, LEFT KNEE REPLACEMENT Past Psychological History: No Psychological Hx Reported Smoking Status: Former smoker Past Alcohol Use History: Daily Past Drug Use History: None Reported Medications and Allergies Home Medications Medication Instructions Recorded Confirmed Type Metoprolol Tartrate [Lopressor] 12.5 mg PO BID-W/MEALS 12/11/13 09/02/18 History Omeprazole [PriLOSEC] 40 mg PO HS 12/11/13 09/02/18 History Aspirin EC [Ecotrin Low Dose] 162 mg PO HS 12/09/17 09/02/18 History Regis/D3/Mag11/Zinc/Quality Management Coordinator/Bryan/Bor 1 tab PO BID-W/MEALS 12/09/17 09/02/18 History [Caltrate 600+D Plus Tablet] Fluticasone Propionate 2 spray EA NOSTRIL HS 12/09/17 09/02/18 History Levothyroxine Sodium [Synthroid] 100 mcg PO MOTUWETHFRSA 12/09/17 09/02/18 History Levothyroxine Sodium [Synthroid] 200 mcg PO MADRIGAL 12/09/17 09/02/18 History Vitamin B Complex 1 cap PO DAILY 12/09/17 09/02/18 History Albuterol Inhaler [Ventolin Hfa 1 - 2 puff INHALATION RT-HS 09/02/18 09/02/18 H istory Inhaler] Ergocalciferol (Vitamin D2) 50,000 unit PO TU 09/02/18 09/02/18 History [Drisdol] Losartan [Cozaar] 50 mg PO DAILY 09/02/18 09/02/18 History Mirtazapine [Remeron] 15 mg PO DAILY@1900 09/02/18 09/02/18 History Multivit-Min/FA/Lycopen/Lutein 1 tab PO W/LUNCH 09/02/18 09/02/18 History [Centrum Silver Tablet] Spironolact/Hydrochlorothiazid 1 tab PO DAILY 09/02/18 09/02/18 History [Aldactazide 25-25 MG] Allergies Allergy/AdvReac Type Severity Reaction Status Date / Time ciprofloxacin [From Cipro] Allergy Unknown Verified 09/02/18 18:00 Penicillins Allergy Swelling Verified 09/02/18 18:00 Physical Exam Vitals: Vital Signs Temp Pulse Resp BP Pulse Ox 09/04/18 06:56 97.4 F L 61 18 120/73 94 L 09/04/18 02:25 98.4 F 58 L 16 125/74 97 09/03/18 19:38 98.2 F 72 16 134/79 96 09/03/18 14:33 97.8 F 81 17 116/77 94 L Intake and Output 09/03/18 09/04/18 09/04/18 22:59 06:59 14:59 Intake Total 630 400 240 Balance 630 400 240 Intake: Intake, IV Titration 150 400 Amount Sodium Chloride 0.9% 1, 150 400 000 ml @ 50 mls/hr IV . Q20H [facility] Rx#:[id number] Oral 480 240 Other: Voiding Method Toilet # Voids 1 2 2 Results - Lab Results Most recent lab results Calcium 9.2 mg/dL (8.4-10.2) 09/03/18 07:07 09/03/18 07:07 09/03/18 07:07 Assessment and Plan Plan: Assessment: 1. Hypovolemic hyponatremia due to diuretics improving with IV hydration. Sodium level was 124 on admission and improved to 127. 2. Benign hypertension. Controlled. 3. Metabolic acidosis secondary to IV fluids. Plan: Maintain normal saline at 50 mL an hour. Avoid diuretics, especially thiazide diuretics. Maintain Cozaar. Follow-up morning labs. Check urine studies. Thank you for the consultation. I will continue to follow the patient with you during her hospital stay.
[2018-09-04 10:42] LABS: Basophils # (A) 0.1 k/uL (0-0.2); Basophils % (A) 1 %; Eosinophils # (A) 0.3 k/uL (0-0.7); Eosinophils % (A) 5 %; HCT 42.3 % (34.0-46.0); HGB 13.4 gm/dL (11.4-16.0); Lymphocytes % (A) 18 %; MCH 31.5 pg (25.0-35.0); MCHC 31.6 g/dL (31.0-37.0); MCV 99.7 fL (80.0-100.0); Mean Platelet Volume 7.6; Monocytes # (A) 0.3 k/uL (0-1.0); Monocytes % (A) 6 %; Neutrophils # (A) 3.6 k/uL (1.3-7.7); Neutrophils % (A) 67 %; Platelet Count 172 k/uL (150-450); RBC 4.25 m/uL (3.80-5.40); RDW 13.5 % (11.5-15.5); WBC 5.3 k/uL (3.8-10.6)
[2018-09-04 11:12] LABS: Albumin 3.9 g/dL (3.5-5.0); Calcium 9.5 mg/dL (8.4-10.2); Potassium 4.8 mmol/L (3.5-5.1); Total Protein 6.8 g/dL (6.3-8.2)
--- NOTE | 2018-09-04 12:50 | P.DS ---
Providers Date of admission: 09/03/18 13:35 Expected date of discharge: 09/04/18 Attending physician: Gina Saavedra Consults: 09/03/18 11:59 Consult Physician Routine Consulting Provider: Linda Lou Consult Reason/Comments: hyponatremia Do you want consulting provider notified?: Yes Primary care physician: Gina Keri [facility] Course: Discharge diagnosis #1 severe hyponatremia, with evidence of dehydration, likely related to the hot weather and the use of diuretics, at this time diuretics are on hold, patient was started on IV normal saline, sodium is up from 124-127 today Will monitor closely. Sodium improving to 130. Diuretic to be held at discharge per nephrology services repeat CMP 2 days. 70 on fluid restriction #2 dehydration #3 mental status changes likely related to hyponatremia. Resolved #4 acute versus chronic sinusitis with air-fluid collection in the right maxillary sinus. Patient denies any acute symptoms white blood cell within normal limits afebrile #5 underlying history of hypertension Hospital course Gabriella Francis, is an 88 year old female who presented to [facility] emergency room with the chief complaints of confusion and mental status changes. Apparently symptoms started less than 24 hours prior to admission, patient stated that she was confused she took a shower but was unable to turn the water off she went out in her front yard yelling she was helped by her neighbor who suggested that she should come to the hospital. In the emergency room patient was found to have significant hyponatremia with a sodium of 124 BUN was slightly elevated at 23 otherwise no significant findings. Computed tomography scan of the brain revealed moderate atrophy and changes of chronic small vessel disease without any acute changes, there was evidence of air fluid level in the right maxillary sinus and fluid in the right mastoid air cells. On 09/04/2018 patient is alert and oriented times patient is eager to go home. Sodium did improve to 1:30. Discussed case with vocational rehabilitation specialist Dr. Wynn. Okay for patient to be DC'd home. Patient's diuretics Aldactazide to be held at discharge. 70 on fluid restriction. Repeat CMP ordered for 2 days. At this time patient denies chest pain or shortness breath. Patient denies nausea vomiting or diarrhea. Patient denies any urinary burning or frequency. I performed an examination of the patient and discussed their management with the Nurse Practitioner. I have reviewed the Nurse Practitioner's notes and agree with the documented findings and plan of care Patient Condition at Discharge: Stable Plan - Discharge Summary Discharge Rx Participant: Yes New Discharge Prescriptions: Continue Omeprazole [PriLOSEC] 40 mg PO HS Metoprolol Tartrate [Lopressor] 12.5 mg PO BID-W/MEALS Aspirin EC [Ecotrin Low Dose] 162 mg PO HS Fluticasone Propionate 2 spray EA NOSTRIL HS Vitamin B Complex 1 cap PO DAILY Regis/D3/Mag11/Zinc/Fisher Seal/Bryan/Bor [Caltrate 600+D Plus Tablet] 1 tab PO BID- W/MEALS Levothyroxine Sodium [Synthroid] 100 mcg PO MOTUWETHFRSA Levothyroxine Sodium [Synthroid] 200 mcg PO MADRIGAL Mirtazapine [Remeron] 15 mg PO DAILY@1900 Albuterol Inhaler [Ventolin Hfa Inhaler] 1 - 2 puff INHALATION RT-HS Multivit-Min/FA/Lycopen/Lutein [Centrum Silver Tablet] 1 tab PO W/LUNCH Ergocalciferol (Vitamin D2) [Drisdol] 50,000 unit PO TU Losartan [Cozaar] 50 mg PO DAILY Discontinued Spironolact/Hydrochlorothiazid [Aldactazide 25-25 MG] 1 tab PO DAILY Discharge Medication List Metoprolol Tartrate [Lopressor] 12.5 mg PO BID-W/MEALS 12/11/13 [History] Omeprazole [PriLOSEC] 40 mg PO HS 12/11/13 [History] Aspirin EC [Ecotrin Low Dose] 162 mg PO HS 12/09/17 [History] Regis/D3/Mag11/Zinc/Fisher Seal/Bryan/Bor [Caltrate 600+D Plus Tablet] 1 tab PO BID-W/MEALS 12/09/17 [History] Fluticasone Propionate 2 spray EA NOSTRIL HS 12/09/17 [History] Levothyroxine Sodium [Synthroid] 100 mcg PO MOTUWETHFRSA 12/09/17 [History] Levothyroxine Sodium [Synthroid] 200 mcg PO MADRIGAL 12/09/17 [History] Vitamin B Complex 1 cap PO DAILY 12/09/17 [History] Albuterol Inhaler [Ventolin Hfa Inhaler] 1 - 2 puff INHALATION RT-HS 09/02/18 [History] Ergocalciferol (Vitamin D2) [Drisdol] 50,000 unit PO TU 09/02/18 [History] Losartan [Cozaar] 50 mg PO DAILY 09/02/18 [History] Mirtazapine [Remeron] 15 mg PO DAILY@1900 09/02/18 [History] Multivit-Min/FA/Lycopen/Lutein [Centrum Silver Tablet] 1 tab PO W/LUNCH 09/02/18 [History] Follow up Appointment(s)/Referral(s): Gina Saavedra MD [Primary Care Provider] - 1-2 days Jonny Wynn DO [STAFF PHYSICIAN] - 1 Week Activity/Diet/Wound Care/Special Instructions: diet: 70 oz fluid restriction activity as tolerated Discharge Disposition: HOME SELF-CARE
[2018-09-05] MEDS ORDERED: ERGOCALCIFEROL 50,000 UNIT CAP PO SCH (09:00)
== END 2018-09-04 14:06 | disposition home or self-care (01) | DRG 641 ==
LOC: EC 16:45 → 4SSUR 20:37 → OBSVTOIN 09-03 13:35
PROVIDERS: ADMIT Internal Medicine; ATTEND Internal Medicine
DX: E87.1 Hypo-osmolality and hyponatremia (principal); E78.5 Hyperlipidemia, unspecified; E86.0 Dehydration; E86.1 Hypovolemia; E87.2 Acidosis; E87.5 Hyperkalemia; E89.0 Postprocedural hypothyroidism; F10.129 Alcohol abuse with intoxication, unspecified; I10 Essential (primary) hypertension; I48.91 Unspecified atrial fibrillation; T50.2X5A Adverse effect of carbonic-anhydrase inhibitors, benzothiadiazides and other diuretics, initial encounter; Z79.890 Hormone replacement therapy; Z79.899 Other long term (current) drug therapy; Z87.891 Personal history of nicotine dependence; Z96.652 Presence of left artificial knee joint; Z79.82 Long term (current) use of aspirin
CPT/HCPCS: 36415; 70450; 71046; 80048; 80053; 81003; 83880; 83930; 83935; 84300; 84484; 85025; 93005; 96360; 96361; 99285

== ENCOUNTER → 2018-09-05 | Outpatient (CLI) | payer MEDICARE ==
[2018-09-05 12:09] LABS: ALT 22 U/L (9-52); AST 30 U/L (14-36); African American GFR (CKD) 67 (>60 ml/min/1.73 sqM); Albumin 4.1 g/dL (3.5-5.0); Albumin/Globulin Ratio 1.5; Alkaline Phosphatase 70 U/L (38-126); Anion Gap 10 mmol/L; Blood Urea Nitrogen 16 mg/dL (7-17); Calcium 9.8 mg/dL (8.4-10.2); Carbon Dioxide 23 mmol/L (22-30); Chloride 95 mmol/L (98-107); Globulin 2.8 g/dL; Glucose 103 mg/dL (74-99); Potassium 5.2 mmol/L (3.5-5.1); Sodium 128 mmol/L (137-145); Total Bilirubin 0.7 mg/dL (0.2-1.3); Total Protein 6.9 g/dL (6.3-8.2)
== END | disposition home or self-care (01) ==
LOC: LABWHC1 11:25
PROVIDERS: ATTEND Nurse Practitioner
DX: E87.1 Hypo-osmolality and hyponatremia (principal)
CPT/HCPCS: 36415; 80053

== ENCOUNTER → 2019-03-08 | Outpatient (CLI) | payer MEDICARE ==
--- NOTE | 2019-03-08 13:06 | US ---
EXAMINATION TYPE: US venous doppler duplex LE LT DATE OF EXAM: 03/08/2019 11:40 AM COMPARISON: NONE CLINICAL HISTORY: M79.662 Pain in left lower limb R22.42 Swelling. SIDE PERFORMED: Left TECHNIQUE: The lower extremity deep venous system is examined utilizing real time linear array sonog michelle with graded compression, doppler sonography and color-flow sonography. VESSELS IMAGED: External Iliac Vein (EIV) Common Femoral Vein Deep Femoral Vein Greater Saphenous Vein * Femoral Vein Popliteal Vein Small Saphenous Vein * Proximal Calf Veins (* superficial vessels) Grayscale, color doppler, spectral doppler imaging performed of the deep veins of the left lower extr emity. There is normal flow, compressibility, vascular waveforms. Left Leg: Negative for DVT Preliminary results given to Ilene at 's office immediately following exam. IMPRESSION: No sonographic evidence of deep venous thrombosis within the left lower extremity.
== END | disposition home or self-care (01) ==
LOC: RADUSWWP 11:38
PROVIDERS: ATTEND Internal Medicine
DX: M79.662 Pain in left lower leg (principal); R22.42 Localized swelling, mass and lump, left lower limb

== ENCOUNTER 2019-04-23 14:17 | Observation (INO) | payer MEDICARE ==
[2019-04-23 14:30] LABS: Glucose,Whole Blood 125 mg/dL (75-99)
--- NOTE | 2019-04-23 14:51 | ED ---
General Adult HPI - General Chief complaint: Neuro Symptoms/Deficit Stated complaint: weakness Time Seen by Provider: 04/23/19 14:34 Source: patient, RN notes reviewed Mode of arrival: ambulatory Limitations: no limitations - History of Present Illness Initial comments: Patient is a pleasant 89-year-old female presenting to the emergency department with family for weakness and slurred speech. Onset of symptoms was less than an hour ago, just before 2:00. Patient had sudden slurred speech and then severely aphasic. Facial droop was noted. Symptoms have significantly improved at this time and near resolved. Patient does complain of headache. Patient does have history of intercranial hemorrhage around 5 years ago when she was on blood thinners. - Related Data Home Medications Medication Instructions Recorded Confirmed Metoprolol Tartrate [Lopressor] 12.5 mg PO BID-W/MEALS 12/11/13 09/02/18 Omeprazole [PriLOSEC] 40 mg PO HS 12/11/13 09/02/18 Aspirin EC [Ecotrin Low Dose] 162 mg PO HS 12/09/17 09/02/18 Regis/D3/Mag11/Zinc/Mail Sorting Supervisor/Bryan/Bor 1 tab PO BID-W/MEALS 12/09/17 09/02/18 [Caltrate 600+D Plus Tablet] Fluticasone Propionate 2 spray EA NOSTRIL HS 12/09/17 09/02/18 Levothyroxine Sodium [Synthroid] 100 mcg PO MOTUWETHFRSA 12/09/17 09/02/18 Levothyroxine Sodium [Synthroid] 200 mcg PO MADRIGAL 12/09/17 09/02/18 Vitamin B Complex 1 cap PO DAILY 12/09/17 09/02/18 Albuterol Inhaler [Ventolin Hfa 1 - 2 puff INHALATION RT-HS 09/02/18 09/02/18 Inhaler] Ergocalciferol (Vitamin D2) 50,000 unit PO TU 09/02/18 09/02/18 [Drisdol] Losartan [Cozaar] 50 mg PO DAILY 09/02/18 09/02/18 Mirtazapine [Remeron] 15 mg PO DAILY@1900 09/02/18 09/02/18 Multivit-Min/FA/Lycopen/Lutein 1 tab PO W/LUNCH 09/02/18 09/02/18 [Centrum Silver Tablet] Allergies Allergy/AdvReac Type Severity Reaction Status Date / Time ciprofloxacin [From Cipro] Allergy Unknown Verified 04/23/19 14:26 Penicillins Allergy Swelling Verified 04/23/19 14:26 Review of Systems ROS Statement: Those systems with pertinent positive or pertinent negative responses have been documented in the HPI. ROS Other: All systems not noted in ROS Statement are negative. Constitutional: Denies: fever Eyes: Denies: eye pain ENT: Denies: ear pain Respiratory: Denies: cough Cardiovascular: Denies: chest pain Endocrine: Denies: fatigue Gastrointestinal: Denies: abdominal pain Genitourinary: Denies: dysuria Musculoskeletal: Denies: back pain Skin: Denies: rash Neurological: Reports: as per HPI, headache, weakness Past Medical History Past Medical History: Atrial Fibrillation, Hyperlipidemia, Hypertension, Thyroid Disorder Additional Past Medical History / Comment(s): hx of brain bleed. History of Any Multi-Drug Resistant Organisms: None Reported Past Surgical History: Orthopedic Surgery Additional Past Surgical History / Comment(s): THYROIDECTOMY, LEFT KNEE REPLACEMENT Past Psychological History: No Psychological Hx Reported Smoking Status: Former smoker Past Alcohol Use History: Daily Past Drug Use History: None Reported General Exam Limitations: no limitations General appearance: alert, in no apparent distress Head exam: Present: normocephalic Eye exam: Present: normal appearance, PERRL, EOMI. Absent: nystagmus ENT exam: Present: normal oropharynx Neck exam: Present: normal inspection Respiratory exam: Present: normal lung sounds bilaterally Cardiovascular Exam: Present: regular rate, irregular rhythm GI/Abdominal exam: Present: soft. Absent: distended, tenderness Extremities exam: Present: normal inspection Neurological exam: Present: alert, oriented X3, CN II-XII intact (Minimal left facial droop), other (Mild slurred speech) Expanded Neurological exam: Present: protecting the airway Patient oriented to: Present: person, place, time Speech: Present: fluid speech Cranial nerves: EOM's Intact: Normal, Facial Sensation: Normal Cerebellar function: Finger to Nose: Normal Sensory exam: Upper Extremity Light Touch: Normal, Lower Extremity Light Touch: Normal Motor strength exam: RUE: 5, LUE: 5, RLE: 5, LLE: 5 Eye Response: (4) open spontaneously Motor Response: (6) obeys commands Verbal Response: (5) oriented Psychiatric exam: Present: normal affect, normal mood Skin exam: Present: normal color Course Vital Signs 04/23/19 04/23/19 04/23/19 14:23 15:13 15:29 Temperature 97.3 F L 97.3 F L Pulse Rate 79 74 88 Respiratory 20 20 18 Rate Blood Pressure 161/97 146/100 139/84 O2 Sat by Pulse 95 95 99 Oximetry - Reevaluation(s) Reevaluation #1: 04/23/19 14:51 Patient is not considered a TPA candidate secondary to rapid improvement of symptoms and symptoms are currently very mild. In addition patient does have history of intercranial hemorrhage associated with anticoagulation. 04/23/19 15:27 1501 case was discussed in detail with Dr. Tamez who agrees patient is not a TPA candidate EKG Findings - EKG Comments: EKG Findings:: A. fib with a rate of 82. QRS 94. QT 388. QTC 453. Left axis. Incomplete right bundle-branch block. Septal Q waves. No acute ST-T Medical Decision Making - Medical Decision Making Patient reevaluated. Patient and family updated. Case was discussed with Dr. Saavedra who is familiar with this patient and will admit. - Lab Data Result diagrams: 04/23/19 15:24 Lab Results 04/23/19 04/23/19 04/23/19 Range/Units 14:28 15:24 15:24 WBC 4.7 (3.8-10.6) k/uL RBC 4.19 (3.80-5.40) m/uL Hgb 14.1 (11.4-16.0) gm/dL Hct 42.4 (34.0-46.0) % MCV 101.3 H (80.0-100.0) fL MCH 33.7 (25.0-35.0) pg MCHC 33.3 (31.0-37.0) g/dL RDW 12.8 (11.5-15.5) % Plt Count 150 (150-450) k/uL Neutrophils % 73 % Lymphocytes % 15 % Monocytes % 6 % Eosinophils % 3 % Basophils % 0 % Neutrophils # 3.5 (1.3-7.7) k/uL Lymphocytes # 0.7 L (1.0-4.8) k/uL Monocytes # 0.3 (0-1.0) k/uL Eosinophils # 0.1 (0-0.7) k/uL Basophils # 0.0 (0-0.2) k/uL PT 12.9 H (9.0-12.0) sec INR 1.3 H (<1.2) APTT 30.9 H (22.0-30.0) sec POC Glucose (mg/dL) 125 H (75-99) mg/dL POC Glu Social Media Manager Mary Brown - Radiology Data Radiology results: report reviewed (Computed tomography scan the brain shows no hemorrhage or shift. Atrophy and chronic small vessel ischemic changes. CT a ngios shows no aneurysm or vascular malformation. Atherosclerotic changes involving carotid bifurcations. No significant stenosis.) Critical Care Time Critical Care Time: Yes Total Critical Care Time: 31 Disposition Clinical Impression: Cerebrovascular accident (CVA) Disposition: ADMITTED IP TO THIS HOSP Is patient prescribed a controlled substance at d/c from ED?: No Referrals: Gina Saavedra MD [Primary Care Provider] - 1-2 days Decision Time: 15:51
--- NOTE | 2019-04-23 15:13 | CT ---
EXAMINATION TYPE: CT brain wo con for TPA DATE OF EXAM: 04/23/2019 COMPARISON: 09/02/2018 HISTORY: Patient appears confused. Neurologic deficits. Altered mental status. CT DLP: 1138.8 mGycm Automated exposure control for dose reduction was used. TECHNIQUE: CT scan of the head is performed without contrast. FINDINGS: There is no acute intracranial hemorrhage or midline shift identified. There is diffuse v entricular and sulcal prominence consistent with diffuse age-related cerebral atrophy. There is low- attenuation in the periventricular white matter consistent with chronic small vessel ischemic change. The globes are intact. Redemonstration of near complete opacification of the right mastoid air ce lls is seen in the prior exam. Left mastoid air cells are well aerated as are the paranasal sinuses. Basilar artery appears tortuous is seen on the prior. Atherosclerosis is seen of the intracranial vas culature. IMPRESSION: No acute intracranial hemorrhage or midline shift. There is diffuse age-related cerebra l atrophy and chronic small vessel ischemic change noted.
--- NOTE | 2019-04-23 15:35 | CT ---
EXAMINATION TYPE: CT angio head neck DATE OF EXAM: 04/23/2019 HISTORY: Patient appears confused. COMPARISON: CT 04/23/2019 CT DLP: 437.6 mGycm. Automated Exposure Control for Dose Reduction was Utilized. TECHNIQUE: CTA scan of the neck is performed with IV Contrast, patient injected with 65 mL of Isovue 370, axial images are obtained, coronal and sagittal reformatted images are reviewed. Three-D recons tructed images are created on an independent workstation and reviewed. FINDINGS: There is a 4.9 cm ascending aortic aneurysm. There is ectasia of the origin of the great ve ssels. Small pericardial effusion seen. Atherosclerotic change aorta. There is atherosclerotic change involving bilateral subclavian arteries greater on the left. Could not exclude a significant stenosi s. Proximal common carotid arteries are patent. There is bilateral atherosclerotic change involving t he carotid bulb. There is no evidence of occlusion. Approximate 50-55% stenosis on the right. No sign ificant stenosis on the left Intracranial vasculature demonstrates a dominant left vertebral artery and diminutive right vertebral artery. No sizable aneurysm or vascular malformation. Visualized anterior, posterior, and middle cer ebral arteries are patent bilaterally. There is intracranial atherosclerotic changes. IMPRESSION: 1. No evidence of aneurysm or vascular malformation. Intracranial vasculature enhances normally. 2. Atherosclerotic change involving the carotid bifurcations. No significant hemodynamic stenosis paulina pected. Correlate with ultrasound as clinically warranted.
[2019-04-23 15:37] LABS: Basophils % (A) 0 %; Eosinophils # (A) 0.1 k/uL (0-0.7); Eosinophils % (A) 3 %; HCT 42.4 % (34.0-46.0); HGB 14.1 gm/dL (11.4-16.0); Lymphocytes # (A) 0.7 k/uL (1.0-4.8); Lymphocytes % (A) 15 %; MCH 33.7 pg (25.0-35.0); MCHC 33.3 g/dL (31.0-37.0); MCV 101.3 fL (80.0-100.0); Mean Platelet Volume 10.5; Monocytes # (A) 0.3 k/uL (0-1.0); Monocytes % (A) 6 %; Neutrophils # (A) 3.5 k/uL (1.3-7.7); Neutrophils % (A) 73 %; Platelet Count 150 k/uL (150-450); RBC 4.19 m/uL (3.80-5.40); RDW 12.8 % (11.5-15.5); WBC 4.7 k/uL (3.8-10.6)
[2019-04-23 15:39] LABS: INR 1.3 (<1.2); Partial Thromboplastin Time 30.9 sec (22.0-30.0); Prothrombin Time 12.9 sec (9.0-12.0)
[2019-04-23] MEDS ORDERED: ACETAMINOPHEN TAB 500 MG TAB PO PRN ×2 (15:48→19:26)
[2019-04-23 15:50] LABS: Creatine Kinase 56 U/L (30-135)
[2019-04-23] MEDS ORDERED: ASPIRIN 325 MG TAB PO STA (15:51)
[2019-04-23 15:52] LABS: ALT 32 U/L (4-34); AST 43 U/L (14-36); African American GFR (CKD) >90 (>60 ml/min/1.73 sqM); Albumin 3.8 g/dL (3.5-5.0); Alkaline Phosphatase 77 U/L (38-126); Anion Gap 9 mmol/L; Blood Urea Nitrogen 15 mg/dL (7-17); Calcium 9.2 mg/dL (8.4-10.2); Carbon Dioxide 24 mmol/L (22-30); Chloride 95 mmol/L (98-107); Glucose 137 mg/dL (74-99); Non-African American GFR(CKD) 79 (>60 ml/min/1.73 sqM); Potassium 3.6 mmol/L (3.5-5.1); Sodium 128 mmol/L (137-145); Total Bilirubin 1.4 mg/dL (0.2-1.3); Total Protein 6.6 g/dL (6.3-8.2)
[2019-04-23] MEDS: ACETAMINOPHEN TAB 325 MG TAB PO PRN ×2 (15:58→21:14)
--- NOTE | 2019-04-23 16:00 | XR ---
EXAMINATION TYPE: XR chest 2V DATE OF EXAM: 04/23/2019 COMPARISON: 09/02/2018 TECHNIQUE: PA and lateral views submitted. HISTORY: Altered mental status FINDINGS: There appears to be ectasia and aneurysmal dilation thoracic aorta. Heart is globally enlarged. Diffu se osteopenia. Coarsened interstitium is stable. No sizable pleural effusion or pneumothorax. Degener ative change of the spine. IMPRESSION: 1. COPD and cardiomegaly correlate for chronic interstitial lung disease. 2. Correlate for thoracic aortic aneurysm.
[2019-04-23 16:03] LABS: Creatine Kinase MB 0.8 ng/mL (0.0-2.4); Troponin I <0.012 ng/mL (0.000-0.034)
[2019-04-23] MEDS: ATORVASTATIN 40 MG TAB PO SCH (16:44)
[2019-04-23] MEDS: SODIUM CHLORIDE 0.9% 1,000 ML IV SCH (16:46)
[2019-04-23] MEDS ORDERED: LORATADINE 10 MG TAB PO PRN (19:26)
--- NOTE | 2019-04-23 20:00 | P.CNNES ---
History of Present Illness Consult date: 04/23/19 Requesting physician: Franki Ovalle Reason for Consult: CVA History of Present Illness: Patient is a 89-year-old female presented to the ER with family for weakness and slurred speech. Onset of symptoms was less than an hour prior to arrival to ER, just before 2 p.m. Patient states that she was getting ready to go to see her doctor when all of the sudden patient developed slurred speech and then became severely aphasic. Facial droop was noted. There was no focal weakness numbness or tingling or visual issues with it. Patient arrived to ER at 2:17 PM Symptoms had significantly improved at time of evaluation by ED physicians and the symptoms had mostly resolved. Patient does complain of headache. Patient does have history of intracranial hemorrhage around 5 years ago when she was on blood thinners. (On review of records, patient had a small right frontal intraparenchymal hemorrhage on 12/11/2013 CTs head). Patient was considered not a candidate for TPA due to rapidly improving symptoms, and symptoms were mild at the time of decision making and also due to her history of intracranial hemorrhage from anticoagulants. The case was discussed by ED physician with stroke neurologist business applications analyst Dr. Hawkins. All symptoms have resolved, but patient continues to have headache. Patient states that she did have a headache very severe yesterday. Her blood pressure was very high. She talked to her primary physician, who adjusted her blood pressure medications. CT head showed no acute intracranial hemorrhage or midline shift. There is diffuse age-related cerebral atrophy and chronic small vessel ischemic change. CTA of head and neck with IV contrast showed no evidence of aneurysm or vascular malformation. Intracranial vasculature enhances normally. Atherosclerotic change involving the carotid bifurcations. No significant hemodynamic stenosis suspected. EKG showed atrial fibrillation, incomplete right bundle branch block, septal infarct, age undetermined. Chest x-ray showed COPD and cardiom egaly. Correlate for chronic interstitial lung disease. Correlate for thoracic aortic aneurysm. Patient's total cholesterol 144, LDL 60, HDL 70 and triglycerides 70 on 12/07/2018. AST mildly elevated 43. Patient has been on aspirin 162 mg daily at home, losartan, amlodipine and metoprolol. Patient has history of atrial fibrillation. Patient states that she was first placed on Xarelto, but then switched to Coumadin. Afterward she developed intracranial hemorrhage as mentioned above. Patient therefore not on anticoagulants or statins. Patient has history of hypertension, denies diabetes, never smoked. Review of Systems Complains of headache. Had a feeling of beginning visual symptoms of migraine earlier today. She has history of migraines a lot when she was younger. Lately she had only one or 2 migraines since she has become older. Denies chest pain shortness of breath wheezing cough diplopia. All other review of systems unremarkable Past Medical History Past Medical History: Atrial Fibrillation, Hyperlipidemia, Hypertension, Thyroid Disorder Additional Past Medical History / Comment(s): hx of brain bleed. History of Any Multi-Drug Resistant Organisms: None Reported Past Surgical History: Orthopedic Surgery Additional Past Surgical History / Comment(s): THYROIDECTOMY, LEFT KNEE REPLACEMENT Smoking Status: Former smoker Medications and Allergies Home Medications Medication Instructions Recorded Confirmed Type Metoprolol Tartrate [Lopressor] 12.5 mg PO BID-W/MEALS 12/11/13 04/23/19 History Omeprazole [PriLOSEC] 40 mg PO HS 12/11/13 04/23/19 History Aspirin EC [Ecotrin Low Dose] 162 mg PO HS 12/09/17 04/23/19 History Regis/D3/Mag11/Zinc/Advertising Strategist/Bryan/Bor 1 tab PO BID-W/MEALS 12/09/17 04/23/19 History [Caltrate 600+D Plus Tablet] Fluticasone Propionate 2 spray EA NOSTRIL HS 12/09/17 04/23/19 History Levothyroxine Sodium [Synthroid] 200 mcg PO MADRIGAL 12/09/17 04/23/19 History Vitamin B Complex 1 cap PO DAILY 12/09/17 04/23/19 History Albuterol Inhaler [Ventolin Hfa 1 - 2 puff INHALATION RT-HS 09/02/18 04/23/19 History Inhaler] Ergocalciferol (Vitamin D2) 50,000 unit PO TU 09/02/18 04/23/19 History [Drisdol] Losartan [Cozaar] 50 mg PO DAILY 09/02/18 04/23/19 History Mirtazapine [Remeron] 15 mg PO DAILY@1900 09/02/18 04/23/19 History Multivit-Min/FA/Lycopen/Lutein 1 tab PO W/LUNCH 09/02/18 04/23/19 History [Centrum Silver Tablet] Acetaminophen [Tylenol Extra 500 mg PO Q6H PRN 04/23/19 04/23/19 History Strength] Levothyroxine Sodium [Synthroid] 112 mcg PO MOTUWETHFRSA 04/23/19 04/23/19 History Loratadine [Claritin] 10 mg PO DAILY PRN 04/23/19 04/23/19 History amLODIPine [Norvasc] 5 mg PO DAILY 04/23/19 04/23/19 History Allergies Allergy/AdvReac Type Severity Reaction Status Date / Time ciprofloxacin [From Cipro] Allergy Unknown Verified 04/23/19 16:04 Penicillins Allergy Swelling Verified 04/23/19 16:04 Physical Examination - Vital Signs Vital Signs: Vital Signs Temp Pulse Pulse Resp BP BP Pulse Ox 04/23/19 17:58 98 F 90 18 122/100 98 04/23/19 17:26 98.0 F 112 H 18 153/90 95 04/23/19 16:15 98 F 74 18 142/100 99 04/23/19 15:29 88 18 139/84 99 04/23/19 15:13 97.3 F L 74 20 146/100 95 04/23/19 14:23 97.3 F L 79 20 161/97 95 Intake and Output 04/23/19 04/23/19 04/23/19 06:59 14:59 22:59 Other: Weight 77.111 kg 77.111 kg On examination patient is an elderly female, who appears in mild distress because of headache. Patient's speech and language functions are normal. Attention and concentration fund of knowledge appears adequate. Patient is hard of hearing. On cranial nerve examination pupils are round and reactive to light, visual rolle are full, extraocular muscles are intact. Face is symmetric, tongue protrudes the midline. Palatal elevation and sensation normal. On muscle strength testing there is no pronator drift and the strength is normal in arms and legs distally and proximally reflexes are 1+ and plantars downgoing. Sensory to touch is equal. No ataxia for [id number] testing. Tone and bulk of muscles normal. No carotid bruit or murmur peripheral pulses present. Results - Laboratory Findings CBC and BMP: 04/23/19 15:24 04/23/19 15:24 Abnormal Lab Findings: Abnormal Labs 04/23/19 04/23/19 04/23/19 14:28 15:24 15:24 MCV 101.3 H Lymphocytes # 0.7 L PT INR APTT Sodium 128 L Chloride 95 L Glucose 137 H POC Glucose (mg/dL) 125 H Total Bilirubin 1.4 H AST 43 H 04/23/19 15:24 MCV Lymphocytes # PT 12.9 H INR 1.3 H APTT 30.9 H Sodium Chloride Glucose POC Glucose (mg/dL) Total Bilirubin AST Assessment and Plan Assessment: * 89-year-old female with long-standing history of atrial fibrillation, not and anticoagulation because of history of small intracranial hemorrhage resulting from Coumadin in 2013, presented with TIA with aphasia and right facial droop, which now all has completely resolved. NIH stroke scale is 0 * History of atrial fibrillation * Hypertension * History of migraine headaches. Plan: * I discussed with patient about resuming anticoagulation. Patient is extremely scared of anticoagulation because of her history of intracranial hemorrhage. She does not want to take any anticoagulants. Apparently patient previously has tried Xarelto and Coumadin. I suggested trying Eliquis, but she declined at this time. Patient understands the risks of not being on anticoagulation, as it can lead to recurrent strokes TIAs, which could be life-threatening. * We will check 2-D echo to evaluate for any left ventricular or left atrial clot. * Continue aspirin and statins for now. * We will check hemoglobin A1c. * We will prescribe Fioricet for headaches.
[2019-04-23] MEDS ORDERED: BUTALB/APAP/CAFF 50-325-40MG TAB PO PRN (20:01)
[2019-04-23] MEDS: ALBUTEROL NEBULIZED 2.5 MG/3 ML INHALATION SCH (20:21)
--- NOTE | 2019-04-23 20:31 | US ---
EXAMINATION TYPE: US carotid duplex BILAT DATE OF EXAM: 04/23/2019 COMPARISON: NONE CLINICAL HISTORY: r/o cva. CVA EXAM MEASUREMENTS: RIGHT: Peak Systolic Velocity (PSV) cm/sec ----- Right CCA: 94.2 ----- Right ICA: 125 ----- Right ECA: 87.9 ICA/CCA ratio: 1.33 RIGHT: End Diastole cm/sec ----- Right CCA: 18.8 ----- Right ICA: 16.2 ----- Right ECA: 8.7 LEFT: Peak Systolic Velocity (PSV) cm/sec ----- Left CCA: 72.9 ----- Left ICA: 135 ----- Left ECA: 103 ICA/CCA ratio: 1.85 LEFT: End Diastole cm/sec ----- Left CCA: 12.6 ----- Left ICA: 34.5 ----- Left ECA: 13.2 VERTEBRALS (direction of flow): Right Vertebral: Antegrade Left Vertebral: Antegrade Moderate plaque bilateral bifurcations. Tortuous left ICA. 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 There is antegrade flow in the vertebral arteries. Criteria for Assigning % of Stenosis / Diameter reduction (Estimation based on the indirect measurements of the internal carotid artery velocities (ICA PSV). 1. Normal (no stenosis)=ICA PSV < 125 cm/s: ratio < 2.0: ICA EDV<40 cm/s. 2. Less than 50% stenosis=ICA PSV < 125 cm/s: ratio < 2.0: ICA EDV<40 cm/s. 3. 50 to 69% stenosis=ICA PSV of 125 to 230 cm/s: ration 2.0 ? 4.0: ICA EDV 40-100 cm/s. 4. Greater than 70% stenosis to near occlusion= ICA PSV > 230 cm/s: ratio > 4.0: ICA EDV > 100 cm/s. 5. Near occlusion= ICA PSV velocities may be low or undetectable: variable ratio and ICA EDV. 6. Total occlusion=unable to detect flow.
[2019-04-23] MEDS ORDERED: ASPIRIN 81 MG PO SCH (21:00)
[2019-04-23] MEDS: PANTOPRAZOLE 40 MG TABLET PO SCH (21:15)
[2019-04-23] MEDS: FLUTICASONE 50MCG/SPRAY NASAL 16GM EA NOSTRIL SCH (21:15)
[2019-04-24 06:52] LABS: Cholesterol 88 mg/dL (<200); HDL Cholesterol 47 mg/dL (40-60); LDL Cholesterol,Calculated 32 mg/dL (0-99); Triglycerides 45 mg/dL (<150)
[2019-04-24] MEDS: CALCIUM CARB-VIT D 500MG-200UN 1 EACH TAB PO SCH ×2 (06:57→17:08)
[2019-04-24] MEDS: METOPROLOL TARTRATE 12.5 MG TAB PO SCH ×2 (06:57→17:08)
[2019-04-24] MEDS: LEVOTHYROXINE 112 MCG TAB PO SCH (06:57)
[2019-04-24] MEDS: SODIUM CHLORIDE 0.9% 1,000 ML IV SCH ×2 (06:57→17:10)
[2019-04-24] MEDS ORDERED: ASPIRIN 325 MG TAB PO SCH (09:00)
[2019-04-24] MEDS ORDERED: NON FORMULARY DRUG (Vitamin B Complex [Vitamin B Complex] 1 CAP) PO SCH (09:00)
[2019-04-24] MEDS ORDERED: ERGOCALCIFEROL 50,000 UNIT CAP PO SCH (09:00)
[2019-04-24] MEDS: amLODIPine 5 MG TAB PO SCH (09:38)
[2019-04-24] MEDS: LOSARTAN 50 MG TAB PO SCH (09:41)
[2019-04-24] MEDS: ATORVASTATIN 40 MG TAB PO SCH (09:41)
--- NOTE | 2019-04-24 09:41 | ECHOF ---
Referral Reason:Thrombus MEASUREMENTS -------- HEIGHT: 167.6 cm WEIGHT: 73.5 kg BP: 136/87 RVIDd: 3.1 cm (< 3.3) IVSd: 1.2 cm (0.6 - 1.1) LVIDd: 5.6 cm (3.9 - 5.3) LVPWd: 1.3 cm (0.6 - 1.1) IVSs: 1.7 cm LVIDs: 4.1 cm LVPWs: 1.6 cm LA Diam: 4.3 cm (2.7 - 3.8) LAESV Index (A-L): 58.87 ml/m Ao Diam: 3.6 cm (2.0 - 3.7) AV Cusp: 1.7 cm (1.5 - 2.6) MV EXCURSION: 15.488 mm (> 18.000) MV EF SLOPE: 49 mm/s (70 - 150) EPSS: 0.5 cm AR PHT: 487 ms RAP: 5.00 mmHg RVSP: 30.79 mmHg TAPSE: 12.91 mm FINDINGS -------- Atrial fibrillation. This was a technically good study. The left ventricle is mildly dilated. There is mild concentric left ventricular hypertrophy. Over all left ventricular systolic function is mildly impaired with, an EF between 45 - 50 %. The right ventricle is normal in size. LA is severely dilated >40 ml/m2 The right atrium is normal in size. Possible PFO There is mild aortic valve sclerosis. There is moderate aortic regurgitation. The mitral valve leaflets are mildly thickened. Mild mitral annular calcification present. Mild-t o-moderate mitral regurgitation is present. Moderate tricuspid regurgitation present. Right ventricular systolic pressure is normal at < 35 mmH g. Trace/mild (physiologic) pulmonic regurgitation. 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 Normal inferior vena cava with normal inspiratory collapse consistent with estimated right atrial pre ssure of 5 mmHg. The inferior vena cava is mildly dilated. There is no pericardial effusion. CONCLUSIONS -------- 1. Atrial fibrillation. 2. This was a technically good study. 3. The left ventricle is mildly dilated. 4. There is mild concentric left ventricular hypertrophy. 5. Overall left ventricular systolic function is mildly impaired with, an EF between 45 - 50 %. 6. The right ventricle is normal in size. 7. LA is severely dilated >40 ml/m2 8. The right atrium is normal in size. 9. Possible PFO 10. There is mild aortic valve sclerosis. 11. There is moderate aortic regurgitation. 12. The mitral valve leaflets are mildly thickened. 13. Mild mitral annular calcification present. 14. [id number] mitral regurgitation is present. 15. Moderate tricuspid regurgitation present. 16. Right ventricular systolic pressure is normal at < 35 mmHg. 17. Trace/mild (physiologic) pulmonic regurgitation. 18. 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 19. Normal inferior vena cava with normal inspiratory collapse consistent with estimated right atrial pressure of 5 mmHg. 20. The inferior vena cava is mildly dilated. 21. There is no pericardial effusion. 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
[2019-04-24 11:33] LABS: Glucose,Whole Blood 113 mg/dL (75-99)
[2019-04-24] MEDS: VIT A,C & E-LUTEIN-MINERALS 1 EACH TAB PO SCH (11:40)
--- NOTE | 2019-04-24 11:52 | P.CRDCN ---
History of Present Illness Consult date: 04/24/19 Requesting physician: Gina Saavedra Consult reason: atrial fibrillation Chief complaint: Slurred speech History of present illness: This is a pleasant 89-year-old female with a documented history of hypertension, hyperlipidemia, hypothyroidism, persistent atrial fibrillation for which the patient states she had been on xarelto in the past, this was changed to Coumadin because of the cost, this was in 2013, she subsequent to that developed intracranial hemorrhage and the Coumadin was discontinued at that time. According to the patient, her blood pressure had been running high at [facility], she contacted her doctor for medication adjustment. She was walking out to her car and suddenly developed slurring of speech and aphasia with some facial droop noted. She denies any weakness on either side of her body. By the time she arrived to the emergency room the symptoms had resolved but the patient was still having a mild headache. Upon review of prior records, patient had a small right frontal intraparenchymal hemorrhage on 12/11/2013. She was not considered a TPA due to rapidly improving symptoms at that time. CT on this occasion did not show any acute intracranial hemorrhage or midline shift. There is diffuse age-related cerebral atrophy and chronic small vessel ischemic change. CTA of the head and neck with contrast showed no evidence of aneurysm or vascular malformation. Intracranial vasculature enhances normally. Atherosclerotic changes involving the carotid bifurcations. No significant hemodynamic stenosis suspected. EKG shows atrial fibrillation with a controlled ventricular response. Chest x-ray showed COPD and cardiomegaly. Correlate for chronic int erstitial lung disease. Correlate for thoracic aortic aneurysm. Blood pressure on arrival here 161/97, heart rate in the 70s to 80s, 95% on room air. White blood cell count 4.7, hemoglobin 14.1, platelet count 150. Sodium 128, potassium 3.6, BUN 15, creatinine 0.6. Troponin negative. At the time of my examination this morning, patient is back to her normal self. I did have a lengthy discussion with the patient regarding anticoagulation with Eliquis 2.5 mg by mouth twice a day and explained the risks and benefits to the patient in detail. She wishes to speak with her daughter and Dr. Saavedra regarding this. If it is recommended by Dr. Saavedra the patient states that she will consider it. We did speak with neurology as well who has also consented to the patient being initiated on Eliquis. Past Medical History Past Medical History: Atrial Fibrillation, Hyperlipidemia, Hypertension, Thyroid Disorder Additional Past Medical History / Comment(s): hx of frontal intracranial hemorrhage. History of Any Multi-Drug Resistant Organisms: None Reported Past Surgical History: Orthopedic Surgery Additional Past Surgical History / Comment(s): THYROIDECTOMY, LEFT KNEE REPLACEMENT Past Anesthesia/Blood Transfusion Reactions: No Reported Reaction Past Psychological History: No Psychological Hx Reported Smoking Status: Former smoker Past Alcohol Use History: Daily Past Drug Use History: None Reported - Past Family History Mother Family Medical History: No Reported History Father Family Medical History: No Reported History Medications and Allergies Home Medications Medication Instructions Recorded Confirmed Type Metoprolol Tartrate [Lopressor] 12.5 mg PO BID-W/MEALS 12/11/13 04/23/19 History Omeprazole [PriLOSEC] 40 mg PO HS 12/11/13 04/23/19 History Aspirin EC [Ecotrin Low Dose] 162 mg PO HS 12/09/17 04/23/19 History Regis/D3/Mag11/Zinc/Search Engine Marketing Specialist/Bryan/Bor 1 tab PO BID-W/MEALS 12/09/17 04/23/19 History [Caltrate 600+D Plus Tablet] Fluticasone Propionate 2 spray EA NOSTRIL HS 12/09/17 04/23/19 History Levothyroxine Sodium [Synthroid] 200 mcg PO JARAMILLO 12/09/17 04/23/19 History Vitamin B Complex 1 cap PO DAILY 12/09/17 04/23/19 History Albuterol Inhaler [Ventolin Hfa 1 - 2 puff INHALATION RT-HS 09/02/18 04/23/19 History Inhaler] Ergocalciferol (Vitamin D2) 50,000 unit PO TU 09/02/18 04/23/19 History [Drisdol] Losartan [Cozaar] 50 mg PO DAILY 09/02/18 04/23/19 History Mirtazapine [Remeron] 15 mg PO DAILY@1900 09/02/18 04/23/19 History Multivit-Min/FA/Lycopen/Lutein 1 tab PO W/LUNCH 09/02/18 04/23/19 History [Centrum Silver Tablet] Acetaminophen [Tylenol Extra 500 mg PO Q6H PRN 04/23/19 04/23/19 History Strength] Levothyroxine Sodium [Synthroid] 112 mcg PO MOTUWETHFRSA 04/23/19 04/23/19 History Loratadine [Claritin] 10 mg PO DAILY PRN 04/23/19 04/23/19 History amLODIPine [Norvasc] 5 mg PO DAILY 04/23/19 04/23/19 History Allergies Allergy/AdvReac Type Severity Reaction Status Date / Time ciprofloxacin [From Cipro] Allergy Unknown Verified 04/23/19 16:04 Penicillins Allergy Swelling Verified 04/23/19 16:04 Physical Exam Vitals: Vital Signs Temp Pulse Pulse Resp BP BP Pulse Ox 04/24/19 11:39 98.0 F 77 16 121/79 94 L 04/24/19 08:00 97.7 F 65 18 144/86 95 04/24/19 04:00 98.0 F 74 18 136/87 94 L 04/24/19 00:00 98.1 F 95 18 107/71 97 04/23/19 20:33 90 04/23/19 20:22 90 04/23/19 20:00 98.1 F 98 18 131/73 93 L 04/23/19 17:58 98 F 90 18 122/100 98 04/23/19 17:26 98.0 F 112 H 18 153/90 95 04/23/19 16:15 98 F 74 18 142/100 99 04/23/19 15:29 88 18 139/84 99 04/23/19 15:13 97.3 F L 74 20 146/100 95 04/23/19 14:23 97.3 F L 79 20 161/97 95 Intake and Output 04/23/19 04/24/19 04/24/19 22:59 06:59 14:59 Intake Total 240 Balance 240 Intake: Oral 240 Other: Voiding Method Toilet Toilet # Voids 2 Weight 77.111 kg 73.8 kg PHYSICAL EXAMINATION: GENERAL: 89-year-old female in no acute distress at the time of my examination HEENT: Head is atraumatic, normocephalic. Pupils equal, round. Sclera anicteric. Conjunctiva are clear. Mucous membranes of the mouth are moist. Neck is supple. There is no elevated jugular venous pressure. No carotid bruit is heard. HEART EXAMINATION: S1 and S2 irregularly irregular a systolic murmur is heard CHEST EXAMINATION: Lungs are clear to auscultation and precussion. No chest wall tenderness is noted on palpation or with deep breathing. ABDOMEN: Soft, nontender. Bowel sounds are heard. No organomegaly noted. EXTREMITIES: 2+ peripheral pulses with no evidence of peripheral edema and no calf tenderness noted. NEUROLOGIC patient is awake, alert and oriented 3 . . Results 04/23/19 15:24 04/23/19 15:24 Cardiac Enzymes 04/23/19 04/23/19 Range/Units 15:24 15:24 AST 43 H (14-36) U/L CK-MB (CK-2) 0.8 (0.0-2.4) ng/mL Troponin I <0.012 (0.000-0.034) ng/mL Coagulation 04/23/19 Range/Units 15:24 PT 12.9 H (9.0-12.0) sec APTT 30.9 H (22.0-30.0) sec Lipids 04/24/19 Range/Units 06:00 Triglycerides 45 (<150) mg/dL Cholesterol 88 (<200) mg/dL HDL Cholesterol 47 (40-60) mg/dL CBC 04/23/19 Range/Units 15:24 WBC 4.7 (3.8-10.6) k/uL RBC 4.19 (3.80-5.40) m/uL Hgb 14.1 (11.4-16.0) gm/dL Hct 42.4 (34.0-46.0) % Plt Count 150 (150-450) k/uL Comprehensive Metabolic Panel 04/23/19 Range/Units 15:24 Sodium 128 L (137-145) mmol/L Potassium 3.6 (3.5-5.1) mmol/L Chloride 95 L (98-107) mmol/L Carbon Dioxide 24 (22-30) mmol/L BUN 15 (7-17) mg/dL Creatinine 0.67 (0.52-1.04) mg/dL Glucose 137 H (74-99) mg/dL Calcium 9.2 (8.4-10.2) mg/dL AST 43 H (14-36) U/L ALT 32 (4-34) U/L Alkaline Phosphatase 77 (38-126) U/L Total Protein 6.6 (6.3-8.2) g/dL Albumin 3.8 (3.5-5.0) g/dL Current Medications Generic Name Dose Route Start Last Admin Trade Name Freq PRN Reason Stop Dose Admin Acetaminophen 500 mg 04/23/19 19:26 Tylenol Tab PO Q6H PRN Pain Acetaminophen/Butalbital/Caffeine 1 each 04/23/19 20:01 Fioricet 50-325-40 PO Q4HR PRN Headache Albuterol Sulfate 2.5 mg 04/23/19 20:00 04/23/19 20:21 Ventolin Nebulized INHALATION 2.5 mg RT-HS CHANDU Administration Amlodipine Besylate 5 mg 04/24/19 09:00 04/24/19 09:38 Norvasc PO 5 mg DAILY CHANDU Administration Aspirin 325 mg 04/24/19 09:00 04/24/19 09:41 Aspirin PO 325 mg DAILY CHANDU Administration Aspirin 162 mg 04/23/19 21:00 04/23/19 21:15 Aspirin PO 162 mg HS CHANDU Administration Atorvastatin Calcium 40 mg 04/23/19 16:00 04/24/19 09:41 Lipitor PO 40 mg DAILY CHANDU Administration Calcium Carbonate 1 each 04/24/19 07:30 04/24/19 06:57 Oscal 500+D PO 1 each BID-W/MEALS CHANDU Administration Ergocalciferol 50,000 unit 04/24/19 09:00 04/24/19 09:41 Vitamin D2 PO 50,000 unit TU CHANDU Administration Fluticasone Propionate 2 spray 04/23/19 21:00 04/23/19 21:15 Flonase Nasal Calera EA NOSTRIL 2 spray HS CHANDU Administration Sodium Chloride 1,000 mls @ 100 mls/hr 04/23/19 16:00 04/24/19 06:57 Saline 0.9% IV 100 mls/hr .Q10H CHANDU Administration Levothyroxine Sodium 200 mcg 04/29/19 06:30 Synthroid PO Jaramillo@0630 CHANDU Levothyroxine Sodium 112 mcg 04/24/19 06:30 04/24/19 06:57 Synthroid PO 112 mcg MOTUWETHFRSA CHANDU Administration Loratadine 10 mg 04/23/19 19:26 Claritin PO DAILY PRN Allergy Symptoms Losartan Potassium 100 mg 04/24/19 09:00 04/24/19 09:41 Cozaar PO 100 mg DAILY CHANDU Administration Metoprolol Tartrate 12.5 mg 04/24/19 07:30 04/24/19 06:57 Lopressor PO 12.5 mg BID-W/MEALS CHANDU Administration Mirtazapine 15 mg 04/24/19 19:00 Remeron PO DAILY@1900 [facility] Multivitamins/Minerals 1 each 04/24/19 12:30 Ivite PO W/LUNCH CHANDU Pantoprazole Sodium 40 mg 04/23/19 21:00 04/23/19 21:15 Protonix PO 40 mg HS CHANDU Administration Intake and Output 04/23/19 04/24/19 04/24/19 22:59 06:59 14:59 Intake Total 240 Balance 240 Intake: Oral 240 Other: Voiding Method Toilet Toilet # Voids 2 Weight 77.111 kg 73.8 kg 04/23/19 15:24 04/23/19 15:24 EKG Interpretations (text) EKG shows atrial fibrillation with a controlled ventricular response Assessment and Plan Plan: Assessment and plan #1 TIA #2 history of small intracranial hemorrhage in 2013 at which time anti coagulation was discontinued #3 persistent atrial fibrillation #4 hypertension #5 hypothyroidism #6 hyperlipidemia Plan Echocardiogram with Doppler study revealed an ejection fraction of 45-50%, there is evidence of possible PFO on the echo. Mild to moderate mitral regurgitation with moderate tricuspid regurgitation. Patient has been encouraged to be initiated on Eliquis for anticoagulation for stroke prevention. She wishes to discuss this further with her daughter and Dr. Saavedra and then further recommendations regarding this will be made. DNP note has been reviewed, I agree with a documented findings and plan of care. Patient was seen and examined.
--- NOTE | 2019-04-24 12:47 | P.PN ---
Subjective Progress Note Date: 04/24/19 Patient offers no new complaints. No further TIAs or focal symptoms. Headache is improved. Objective - Vital Signs Vital signs: Vital Signs Temp 98.0 F 04/24/19 11:39 Pulse 77 04/24/19 12:00 Resp 16 04/24/19 11:39 BP 121/79 04/24/19 11:39 Pulse Ox 94 L 04/24/19 11:39 Intake & Output 04/23/19 04/24/19 04/24/19 18:59 06:59 18:59 Intake Total 240 Balance 240 Weight 77.111 kg 73.8 kg Intake: Oral 240 Other: Voiding Method Toilet # Voids 2 - Exam Nonfocal. - Labs CBC & Chem 7: 04/23/19 15:24 04/23/19 15:24 Labs: Abnormal Lab Results - Last 24 Hours (Table) 04/23/19 04/23/19 04/23/19 Range/Units 14:28 15:24 15:24 MCV 101.3 H (80.0-100.0) fL Lymphocytes # 0.7 L (1.0-4.8) k/uL PT (9.0-12.0) sec INR (<1.2) APTT (22.0-30.0) sec Sodium 128 L (137-145) mmol/L Chloride 95 L (98-107) mmol/L Glucose 137 H (74-99) mg/dL POC Glucose (mg/dL) 125 H (75-99) mg/dL Total Bilirubin 1.4 H (0.2-1.3) mg/dL AST 43 H (14-36) U/L 04/23/19 04/24/19 Range/Units 15:24 11:32 MCV (80.0-100.0) fL Lymphocytes # (1.0-4.8) k/uL PT 12.9 H (9.0-12.0) sec INR 1.3 H (<1.2) APTT 30.9 H (22.0-30.0) sec Sodium (137-145) mmol/L Chloride (98-107) mmol/L Glucose (74-99) mg/dL POC Glucose (mg/dL) 113 H (75-99) mg/dL Total Bilirubin (0.2-1.3) mg/dL AST (14-36) U/L Assessment and Plan Assessment: * 89-year-old female with long-standing history of atrial fibrillation, not and anticoagulation because of history of small intracranial hemorrhage resulting from Coumadin in 2013, presented with TIA with aphasia and right facial droop, which now all has completely resolved. NIH stroke scale is 0 * History of atrial fibrillation * Hypertension * History of migraine headaches. Plan: * Cardiology consult appreciated for atrial fibrillation, and PFO noted on 2-D echo. Patient wants to discuss with her daughter and her primary physician about initiating anticoagulations. * 2-D echo showed atrial fibrillation. Left ventricle is mildly dilated. Left-ventricular EF 45-50%. Mild concentric LVH. Left atrium is severely dilated. Possible PFO. Moderate aortic regurgitation. Mild to moderate mitral regurgitation. * Continue aspirin and statins for now. * Await hemoglobin A1c. * We will prescribe Fioricet for headaches.
--- NOTE | 2019-04-24 14:35 | P.HPIM ---
History of Present Illness H&P Date: 04/24/19 Chief Complaint: weakness and slurred speech this is a 89-year-old female with a past medical history of intracranial hemorrhage in 2013 with Coumadin, atrial fibrillation, hyperlipidemia, hypertension and hypothyroidism. Patient presented to the emergency room with her family with complaints of weakness and slurred speech. Symptoms started yesterday around 2:00. Patient had sudden slurred speech and facial droop. She is also complaining of a headache. She had a computed tomography scan of the brain showing no acute changes. CTA of the head and neck no evidence of any aneurysm. Carotid Dhowed 50-70% stenosis bilateral internal carotid artery. Echo showed an EF of 40-50% with a le PFO mode tricuspid rurgitation, moderate aortic regurgitation and mild to moderate mitral regurgitation. EKG had shown A. fib with a heart rate of 82. Chest x-ray had shown COPD, cardiomegaly and to correlate for chronic interstitial lung disease and correlate for TAA. Tammy jefferson's symptoms have now resolved. She has been seen and evalued by neurology as well as cardiology in both recommended [facility]. However patient is very fearful of taking this medication due t her previous vein bleed. She is currently on a baby aspirin and statin. She denies any chest pain or shortness of breath, nausea or vomiting, bowel movement changes or urinary symptoms. Review of Systems please refer to HPI otherwise unremarkable Past Medical History Past Medical History: Atrial Fibrillation, Hyperlipidemia, Hypertension, Thyroid Disorder Additional Past Medical History / Comment(s): hx of frontal intracranial hemorrhage. History of Any Multi-Drug Resistant Organisms: None Reported Past Surgical History: Orthopedic Surgery Additional Past Surgical History / Comment(s): THYROIDECTOMY, LEFT KNEE REPLACEMENT Past Anesthesia/Blood Transfusion Reactions: No Reported Reaction Past Psychological History: No Psychological Hx Reported Smoking Status: Former smoker Past Alcohol Use History: Daily Past Drug Use History: None Reported - Past Family History Mother Family Medical History: No Reported History Father Family Medical History: No Reported History Medications and Allergies Home Medications Medication Instructions Recorded Confirmed Type Metoprolol Tartrate [Lopressor] 12.5 mg PO BID-W/MEALS 12/11/13 04/23/19 History Omeprazole [PriLOSEC] 40 mg PO HS 12/11/13 04/23/19 History Aspirin EC [Ecotrin Low Dose] 162 mg PO HS 12/09/17 04/23/19 History Regis/D3/Mag11/Zinc/Type Proof Reproducer/Bryan/Bor 1 tab PO BID-W/MEALS 12/09/17 04/23/19 History [Caltrate 600+D Plus Tablet] Fluticasone Propionate 2 spray EA NOSTRIL HS 12/09/17 04/23/19 History Levothyroxine Sodium [Synthroid] 200 mcg PO MADRIGAL 12/09/17 04/23/19 History Vitamin B Complex 1 cap PO DAILY 12/09/17 04/23/19 History Albuterol Inhaler [Ventolin Hfa 1 - 2 puff INHALATION RT-HS 09/02/18 04/23/19 History Inhaler] Ergocalciferol (Vitamin D2) 50,000 unit PO TU 09/02/18 04/23/19 History [Drisdol] Losartan [Cozaar] 50 mg PO DAILY 09/02/18 04/23/19 History Mirtazapine [Remeron] 15 mg PO DAILY@1900 09/02/18 04/23/19 History Multivit-Min/FA/Lycopen/Lutein 1 tab PO W/LUNCH 09/02/18 04/23/19 History [Centrum Silver Tablet] Acetaminophen [Tylenol Extra 500 mg PO Q6H PRN 04/23/19 04/23/19 History Strength] Levothyroxine Sodium [Synthroid] 112 mcg PO MOTUWETHFRSA 04/23/19 04/23/19 History Loratadine [Claritin] 10 mg PO DAILY PRN 04/23/19 04/23/19 History amLODIPine [Norvasc] 5 mg PO DAILY 04/23/19 04/23/19 History Allergies Allergy/AdvReac Type Severity Reaction Status Date / Time ciprofloxacin [From Cipro] Allergy Unknown Verified 04/23/19 16:04 Penicillins Allergy Swelling Verified 04/23/19 16:04 Physical Exam Vitals: Vital Signs Temp Pulse Pulse Resp BP BP Pulse Ox 04/24/19 12:00 77 04/24/19 11:39 98.0 F 77 16 121/79 94 L 04/24/19 08:00 97.7 F 65 18 144/86 95 04/24/19 04:00 98.0 F 74 18 136/87 94 L 04/24/19 00:00 98.1 F 95 18 107/71 97 04/23/19 20:33 90 04/23/19 20:22 90 04/23/19 20:00 98.1 F 98 18 131/73 93 L 04/23/19 17:58 98 F 90 18 122/100 98 04/23/19 17:26 98.0 F 112 H 18 153/90 95 04/23/19 16:15 98 F 74 18 142/100 99 04/23/19 15:29 88 18 139/84 99 04/23/19 15:13 97.3 F L 74 20 146/100 95 Intake and Output 04/23/19 04/24/19 04/24/19 22:59 06:59 14:59 Intake Total 885 Balance 885 Intake: Intake, IV Titration 525 Amount Sodium Chloride 0.9% 1, 525 000 ml @ 100 mls/hr IV . Q10H [facility] Rx#:[id number] Oral 360 Other: Voiding Method Toilet Toilet # Voids 2 2 Weight 77.111 kg 73.8 kg Head normocephalic Neck supple Lungs clear to auscultation bilaterally no wheezing or crackles Heart irregular rhythm. A. fib on monitor Abdomen is soft nontender nondistended positive bowel sounds no h epatosplenomegaly Extremities no edema Neuro alert and orientated to 3 Results CBC & Chem 7: 04/23/19 15:24 04/23/19 15:24 Labs: Abnormal Lab Results - Last 24 Hours (Table) 04/23/19 04/23/19 04/23/19 Range/Units 14:28 15:24 15:24 MCV 101.3 H (80.0-100.0) fL Lymphocytes # 0.7 L (1.0-4.8) k/uL PT (9.0-12.0) sec INR (<1.2) APTT (22.0-30.0) sec Sodium 128 L (137-145) mmol/L Chloride 95 L (98-107) mmol/L Glucose 137 H (74-99) mg/dL POC Glucose (mg/dL) 125 H (75-99) mg/dL Total Bilirubin 1.4 H (0.2-1.3) mg/dL AST 43 H (14-36) U/L 04/23/19 04/24/19 Range/Units 15:24 11:32 MCV (80.0-100.0) fL Lymphocytes # (1.0-4.8) k/uL PT 12.9 H (9.0-12.0) sec INR 1.3 H (<1.2) APTT 30.9 H (22.0-30.0) sec Sodium (137-145) mmol/L Chloride (98-107) mmol/L Glucose (74-99) mg/dL POC Glucose (mg/dL) 113 H (75-99) mg/dL Total Bilirubin (0.2-1.3) mg/dL AST (14-36) U/L Thrombosis Risk Factor Assmnt - Choose All That Apply Any of the Below Risk Factors Present?: Yes Each Factor Represents 1 point: Obesity (BMI >25) Each Risk Factor Represents 3 Points: Age 75 years or older Thrombosis Risk Factor Assessment Total Risk Factor Score: 4 Thrombosis Risk Factor Assessment Level: Moderate Risk Assessment and Plan Assessment: 1. TIA withExpressive aphasia with right-sided facial droop. Symptoms reolved. Patient has -standing history of atrial fibrillation and not on anticoagulation due prior small intracranial hemorrhage from Coumadin in 2013. Echo shows possible PFO. Patient seen by both neurology and cardiology, specialists are recommending Eliquis. Patient is fearful of restarting a blood thinner. Continue aspirin 81 mg daily and statin 2. 50-70% stenosis of the bilateral internal carotid arteries noted on carotid Doppler 3. persistent chronic atrial fibrillation: Not on anticoagulation due tohistory of intracranial hemorrhage 4. Essential hyension with elevated blood pressures on admission now improved. 5. Hypothyroidism continue Synthroid 6. Hyperlipidemia continue statin 7. Headache improved with the Fioricet GI prophylaxis Protonix PT OT and speech therapy and consult Time with Patient: Greater than 30 (Greater than 50% of the total time spent in counseling and coordination of care.I performed an examination of the patient and discussed their management with the physician Market Maker. I have reviewed the Physician Market Maker's notes and agree with the documented findings and plan of care)
[2019-04-24 18:44] LABS: Hemoglobin A1C 5.6 % (4.0-6.0)
[2019-04-24] MEDS ORDERED: MIRTAZAPINE 15 MG TAB PO SCH (19:00)
[2019-04-24] MEDS: ALBUTEROL NEBULIZED 2.5 MG/3 ML INHALATION SCH (22:21)
[2019-04-24] MEDS: APIXABAN 5 MG TAB PO SCH (22:40)
[2019-04-24] MEDS: PANTOPRAZOLE 40 MG TABLET PO SCH (22:41)
[2019-04-24] MEDS: FLUTICASONE 50MCG/SPRAY NASAL 16GM EA NOSTRIL SCH (22:41)
[2019-04-25 06:25] LABS: Basophils % (A) 1 %; Eosinophils # (A) 0.2 k/uL (0-0.7); Eosinophils % (A) 4 %; HCT 42.8 % (34.0-46.0); HGB 14.2 gm/dL (11.4-16.0); Lymphocytes % (A) 24 %; MCV 102.9 fL (80.0-100.0); Macrocytosis Slight; Mean Platelet Volume 10.8; Monocytes # (A) 0.3 k/uL (0-1.0); Monocytes % (A) 7 %; Neutrophils # (A) 2.4 k/uL (1.3-7.7); Neutrophils % (A) 60 %; Platelet Count 133 k/uL (150-450); RBC 4.16 m/uL (3.80-5.40); RDW 12.8 % (11.5-15.5)
[2019-04-25 06:48] LABS: ALT 29 U/L (4-34); AST 38 U/L (14-36); African American GFR (CKD) >90 (>60 ml/min/1.73 sqM); Albumin 3.4 g/dL (3.5-5.0); Alkaline Phosphatase 77 U/L (38-126); Anion Gap 7 mmol/L; Blood Urea Nitrogen 14 mg/dL (7-17); Calcium 8.7 mg/dL (8.4-10.2); Carbon Dioxide 23 mmol/L (22-30); Chloride 107 mmol/L (98-107); Glucose 90 mg/dL (74-99); Non-African American GFR(CKD) 82 (>60 ml/min/1.73 sqM); Potassium 3.5 mmol/L (3.5-5.1); Sodium 137 mmol/L (137-145); Total Protein 6.1 g/dL (6.3-8.2)
[2019-04-25] MEDS: METOPROLOL TARTRATE 12.5 MG TAB PO SCH (06:58)
[2019-04-25] MEDS: CALCIUM CARB-VIT D 500MG-200UN 1 EACH TAB PO SCH (06:58)
[2019-04-25] MEDS ORDERED: ASPIRIN 81 MG PO SCH (09:00)
[2019-04-25] MEDS: LEVOTHYROXINE 112 MCG TAB PO SCH (10:04)
[2019-04-25] MEDS: APIXABAN 5 MG TAB PO SCH (10:04)
[2019-04-25] MEDS: amLODIPine 5 MG TAB PO SCH (10:04)
[2019-04-25] MEDS: SODIUM CHLORIDE 0.9% 1,000 ML IV SCH (10:05)
[2019-04-25] MEDS: ATORVASTATIN 40 MG TAB PO SCH (10:05)
[2019-04-25] MEDS: LOSARTAN 50 MG TAB PO SCH (10:05)
[2019-04-25] MEDS: VIT A,C & E-LUTEIN-MINERALS 1 EACH TAB PO SCH (10:06)
[2019-04-25 11:48] VITALS: RESP 16; TEMP 98
--- NOTE | 2019-04-25 12:35 | P.PN ---
Subjective Progress Note Date: 04/25/19 This is a pleasant 89-year-old female with a documented history of hypertension, hyperlipidemia, hypothyroidism, persistent atrial fibrillation for which the patient states she had been on xarelto in the past, this was changed to Coumadin because of the cost, this was in 2013, she subsequent to that developed intracranial hemorrhage and the Coumadin was discontinued at that time. According to the patient, her blood pressure had been running high at home, she contacted her doctor for medication adjustment. She was walking out to her car and suddenly developed slurring of speech and aphasia with some facial droop noted. She denies any weakness on either side of her body. By the time she arrived to the emergency room the symptoms had resolved but the patient was still having a mild headache. Upon review of prior records, patient had a small right frontal intraparenchymal hemorrhage on 12/11/2013. She was not considered a TPA due to rapidly improving symptoms at that time. CT on this occasion did not show any acute intracranial hemorrhage or midline shift. There is diffuse age-related cerebral atrophy and chronic small vessel ischemic change. CTA of the head and neck with contrast showed no evidence of aneurysm or vascular malformation. Intracranial vasculature enhances normally. Atherosclerotic changes involving the carotid bifurcations. No significant hemodynamic stenosis suspected. EKG shows atrial fibrillation with a controlled ventricular response. Chest x-ray showed COPD and cardiomegaly. Correlate for chronic interstitial lung disease. Correlate for thoracic aortic aneurysm. Blood pressure on arrival here 161/97, heart rate in the 70s to 80s, 95% on room air. White blood cell count 4.7, hemoglobin 14.1, platelet count 150. Sodium 128, potassium 3.6, BUN 15, creatinine 0.6. Troponin negative. At the time of my examination this morning, patient is back to her normal self. I did have a lengthy discussion with the patient regarding anticoagulation with Eliquis 2.5 mg by mouth twice a day and explained the risks and benefits to the patient in detail. She wishes to speak with her daughter and Dr. Saavedra regarding this. If it is recommended by Dr. Saavedra the patient states that she will consider it. We did speak with neurology as well who has also consented to the patient being initiated on Eliquis. 04/25/2019 Patient seen and examined this morning, she did have a discussion with Dr. Saavedra and has agreed to be put on Eliquis which was initiated by him yesterday. This morning overall the patient feels well and is quite eager to be discharged home. Blood pressure 136/78 with a heart rate in the 80s, 95% on room air. White blood cell count 4.0, hemoglobin 14.2, platelet count 133. Sodium 137, potassium 3.5, BUN 14 and creatinine 0.6. Objective - Vital Signs Vital signs: Vital Signs Temp 98 F 04/25/19 08:45 Pulse 85 04/25/19 12:28 Resp 16 04/25/19 12:28 BP 137/79 04/25/19 12:28 Pulse Ox 95 04/25/19 12:28 Intake & Output 04/24/19 04/25/19 04/25/19 18:59 06:59 18:59 Intake Total 1005 240 Balance 1005 240 Weight 75.8 kg Intake: Intake, IV Titration 525 Amount Sodium Chloride 0.9% 1, 525 000 ml @ 100 mls/hr IV . Q10H [facility] Rx#:[id number] Oral 480 240 Other: Voiding Method Toilet # Voids 2 2 1 - Exam PHYSICAL EXAMINATION: GENERAL: 89-year-old female in no acute distress at the time of my examination HEENT: Head is atraumatic, normocephalic. Pupils equal, round. Sclera anicteric. Conjunctiva are clear. Mucous membranes of the mouth are moist. Neck is supple. There is no elevated jugular venous pressure. No carotid bruit is heard. HEART EXAMINATION: S1 and S2 irregularly irregular a systolic murmur is heard CHEST EXAMINATION: Lungs are clear to auscultation and precussion. No chest wall tenderness is noted on palpation or with deep breathing. ABDOMEN: Soft, nontender. Bowel sounds are heard. No organomegaly noted. EXTREMITIES: 2+ peripheral pulses with no evidence of peripheral edema and no calf tenderness noted. NEUROLOGIC patient is awake, alert and oriented 3 . - Labs CBC & Chem 7: 04/25/19 05:59 04/25/19 05:59 Labs: Abnormal Lab Results - Last 24 Hours (Table) 04/24/19 04/25/19 04/25/19 Range/Units 17:18 05:59 05:59 MCV 102.9 H (80.0-100.0) fL Plt Count 133 L (150-450) k/uL Sodium 133 L (137-145) mmol/L AST 38 H (14-36) U/L Total Protein 6.1 L (6.3-8.2) g/dL Albumin 3.4 L (3.5-5.0) g/dL Assessment and Plan Plan: Assessment and plan #1 TIA #2 history of small intracranial hemorrhage in 2013 at which time anticoagulation was discontinued #3 persistent atrial fibrillation #4 hypertension #5 hypothyroidism #6 hyperlipidemia Plan Echocardiogram with Doppler study revealed an ejection fraction of 45-50%, there is evidence of possible PFO on the echo. Mild to moderate mitral regurgitation with moderate tricuspid regurgitation. Patient has been initiated on Eliquis for anticoagulation. We will continue the rest of the patient's medications. DNP note has been reviewed, I agree with a documented findings and plan of care. Patient was seen and examined.
[2019-04-25] MEDS ORDERED: POTASSIUM CHLORIDE ER 20 MEQ TAB.ER PO STA (12:43)
--- NOTE | 2019-04-25 14:48 | P.DS ---
Providers Date of admission: 04/23/19 15:51 Expected date of discharge: 04/25/19 Attending physician: Gina Saavedra Consults: 04/23/19 15:52 Consult Physician Urgent Consulting Provider: Radha Bustos Consult Reason/Comments: cva Do you want consulting provider notified?: Yes 04/24/19 09:53 Consult Physician Routine Consulting Provider: Neetu Manuel Consult Reason/Comments: possible PFO, AFIB no anticoagulant Do you want consulting provider notified?: Already Contacted 04/24/19 10:35 Consult Physician Routine Consulting Provider: Joaquin Mcgovern Consult Reason/Comments: stroke, a fib Do you want consulting provider notified?: Yes Primary care physician: Gina Keri [facility] Course: 1. TIA with Expressive aphasia with right-sided facial droop. Symptoms resolv ed. Patient has history of atrial fibrillation and not on anticoagulation due prior small intracranial hemorrhage from Coumadin in 2013. Echo shows possible PFO. Patient seen by both neurology and cardiology, specialists are recommending Eliquis. Continue aspirin 81 mg daily and statin. Patient was agreeable to starting Eliquis has tolerated it well 2. 50-70% stenosis of the bilateral internal carotid arteries noted on carotid Doppler 3. persistent chronic atrial fibrillation: had Not been on anticoagulation due to history of intracranial hemorrhage 4. Essential hyension with elevated blood pressures on admission now improved. 5. Hypothyroidism continue Synthroid 6. Hyperlipidemia continue statin 7. Headache improved with the [facility] course this is a 89-year-old female with a past medical history of intracranial hemorrhage in 2014 with Coumadin, atrial fibrillation, hyperlipidemia, hypertension and hypothyroidism. Patient presented to the emergency room with her family with complaints of weakness and slurred speech. Symptoms started yesterday around 2:00. Patient had sudden slurred speech and facial droop. She is also complaining of a headache. She had a computed tomography scan of the brain showing no acute changes. CTA of the head and neck no evidence of any aneurysm. Carotid Dhowed 50-70% stenosis bilateral internal carotid artery. Echo showed an EF of 40-50% with a le PFO mode tricuspid rurgitation, moderate aortic regurgitation and mild to moderate mitral regurgitation. EKG had shown A. fib with a heart rate of 82. Chest x-ray had shown COPD, cardiomegaly and to correlate for chronic interstitial lung disease and correlate for TAA. Patient's symptoms have now resolved. She has been seen and evalued by neurology as well as cardiology in both recommended Eliquis. However patient is very fearful of taking this medication due t her previous vein bleed. She is currently on a baby aspirin and statin. She denies any chest pain or shortness of breath, nausea or vomiting, bowel movement changes or urinary symptoms. 04/25/2019 patient was seen by cardiology and neurology during her admission. Due to her history of atrial fibrillation and PFO possibly present on echo both consulting services recommended patient to be on Eliquis. Dr. Saavedra I reviewed consultants notes and test results with patient and she is now agreeable with the Eliquis. Eliquis was started yesterday she tolerated this well and will continue with it at home. Patient's symptoms have improved she is medically stable for discharge and has been cleared by consulting physicians for discharge. Patient to follow up with Dr. Saavedra in 1 week. gun club manager is checking the insurance covers the Eliquis. I performed an examination of the patient and discussed their management with the physician Brass Chaser. I have reviewed the Physician Brass Chaser's notes and agree with the documented findings and plan of care Patient Condition at Discharge: Stable Plan - Discharge Summary Discharge Rx Participant: No New Discharge Prescriptions: New Aspirin 81 mg PO DAILY #30 tab Apixaban [Eliquis] 2.5 mg PO BID #60 tab Atorvastatin [Lipitor] 40 mg PO DAILY #30 tab Continue Omeprazole [PriLOSEC] 40 mg PO HS Metoprolol Tartrate [Lopressor] 12.5 mg PO BID-W/MEALS Fluticasone Propionate 2 spray EA NOSTRIL HS Vitamin B Complex 1 cap PO DAILY Regis/D3/Mag11/Zinc/Associate Professor Of Philosophy/Bryan/Bor [Caltrate 600+D Plus Tablet] 1 tab PO BID- W/MEALS Levothyroxine Sodium [Synthroid] 200 mcg PO MADRIGAL Mirtazapine [Remeron] 15 mg PO DAILY@1900 Albuterol Inhaler [Ventolin Hfa Inhaler] 1 - 2 puff INHALATION RT-HS Multivit-Min/FA/Lycopen/Lutein [Centrum Silver Tablet] 1 tab PO W/LUNCH Ergocalciferol (Vitamin D2) [Drisdol] 50,000 unit PO TU Losartan [Cozaar] 50 mg PO DAILY Levothyroxine Sodium [Synthroid] 112 mcg PO MOTUWETHFRSA Acetaminophen [Tylenol Extra Strength] 500 mg PO Q6H PRN PRN Reason: Pain Loratadine [Claritin] 10 mg PO DAILY PRN PRN Reason: Allergy Symptoms amLODIPine [Norvasc] 5 mg PO DAILY Discontinued Aspirin EC [Ecotrin Low Dose] 162 mg PO HS Discharge Medication List Metoprolol Tartrate [Lopressor] 12.5 mg PO BID-W/MEALS 12/11/13 [History] Omeprazole [PriLOSEC] 40 mg PO HS 12/11/13 [History] Regis/D3/Mag11/Zinc/Associate Professor Of Philosophy/Bryan/Bor [Caltrate 600+D Plus Tablet] 1 tab PO BID-W/MEALS 12/09/17 [History] Fluticasone Propionate 2 spray EA NOSTRIL HS 12/09/17 [History] Levothyroxine Sodium [Synthroid] 200 mcg PO MADRIGAL 12/09/17 [History] Vitamin B Complex 1 cap PO DAILY 12/09/17 [History] Albuterol Inhaler [Ventolin Hfa Inhaler] 1 - 2 puff INHALATION RT-HS 09/02/18 [History] Ergocalciferol (Vitamin D2) [Drisdol] 50,000 unit PO TU 09/02/18 [History] Losartan [Cozaar] 50 mg PO DAILY 09/02/18 [History] Mirtazapine [Remeron] 15 mg PO DAILY@1900 09/02/18 [History] Multivit-Min/FA/Lycopen/Lutein [Centrum Silver Tablet] 1 tab PO W/LUNCH 09/02/18 [History] Acetaminophen [Tylenol Extra Strength] 500 mg PO Q6H PRN 04/23/19 [History] Levothyroxine Sodium [Synthroid] 112 mcg PO MOTUWETHFRSA 04/23/19 [History] Loratadine [Claritin] 10 mg PO DAILY PRN 04/23/19 [History] amLODIPine [Norvasc] 5 mg PO DAILY 04/23/19 [History] Apixaban [Eliquis] 2.5 mg PO BID #60 tab 04/25/19 [Rx] Aspirin 81 mg PO DAILY #30 tab 04/25/19 [Rx] Atorvastatin [Lipitor] 40 mg PO DAILY #30 tab 04/25/19 [Rx] Follow up Appointment(s)/Referral(s): Neetu Manuel MD [STAFF PHYSICIAN] - 05/07/19 3:00 pm (Aircraft Engineer.) Gina Saavedra MD [Primary Care Provider] - 1 Week (Left message to call with a follow up appointment. ) Patient Instructions/Handouts: Transient Ischemic Attack (DC), Safe Use of Anticoagulants (DC) Activity/Diet/Wound Care/Special Instructions: CVA/TIA 1. Call your physician with any worsening symptoms of stroke such as, increased weakness, new numbness or tingling, mental status changes, visual changes or new loss of sensation. 2. Stroke prevention methods include lowering cholesterol, thinning your blood, preventing high blood pressure, keeping tight control of your diabetes, increasing exercise/activity, smoking cessation and alcohol cessation. Diet: Cardiac Activity: as tolerated Discharge Disposition: HOME SELF-CARE
[2019-04-25 15:52] VITALS: BP 140/90; PULSE 77
--- NOTE | 2019-04-25 16:23 | CT ---
EXAMINATION TYPE: CT brain wo con DATE OF EXAM: 04/25/2019 HISTORY: Follow up scan. Acute onset neuro deficit [address] DLP: 1099.4 mGycm. Automated Exposure Control for Dose Reduction was Utilized. TECHNIQUE: CT scan of the head is performed without contrast. COMPARISON: None. FINDINGS: There is no acute intracranial hemorrhage or midline shift identified. There is diffuse v entricular and sulcal prominence consistent with diffuse age-related cerebral atrophy. There is low- attenuation in the periventricular white matter consistent with chronic small vessel ischemic change. Partially opacified right mastoid air cells remain present. Scleral calcification bilateral globes redemonstrated. Visualized paranasal sinuses remain clear. IMPRESSION: No acute intracranial hemorrhage or midline shift. There is [id number] diffuse ag e-related cerebral atrophy and chronic small vessel ischemic change redemonstrated. No significant c hange from prior.
--- NOTE | 2019-04-25 16:24 | P.PN ---
Subjective Progress Note Date: 04/25/19 Patient offers no new complaints. No further TIAs or focal symptoms. Headache is improved. Objective - Vital Signs Vital signs: Vital Signs Temp 98 F 04/25/19 08:45 Pulse 77 04/25/19 15:20 Resp 16 04/25/19 15:20 BP 140/90 04/25/19 15:20 Pulse Ox 95 04/25/19 15:20 Intake & Output 04/24/19 04/25/19 04/25/19 18:59 06:59 18:59 Intake Total 1005 600 Balance 1005 600 Weight 75.8 kg Intake: Intake, IV Titration 525 Amount Sodium Chloride 0.9% 1, 525 000 ml @ 100 mls/hr IV . Q10H [facility] Rx#:[id number] Oral 480 600 Other: Voiding Method Toilet Toilet # Voids 2 2 1 - Exam Nonfocal. - Labs CBC & Chem 7: 04/25/19 05:59 04/25/19 05:59 Labs: Abnormal Lab Results - Last 24 Hours (Table) 04/24/19 04/25/19 04/25/19 Range/Units 17:18 05:59 05:59 MCV 102.9 H (80.0-100.0) fL Plt Count 133 L (150-450) k/uL Sodium 133 L (137-145) mmol/L AST 38 H (14-36) U/L Total Protein 6.1 L (6.3-8.2) g/dL Albumin 3.4 L (3.5-5.0) g/dL Assessment and Plan Assessment: * 89-year-old female with long-standing history of atrial fibrillation, not and anticoagulation because of history of small intracranial hemorrhage resulting from Coumadin in 2013, presented with TIA with aphasia and right facial droop, which now all has completely resolved. NIH stroke scale is 0 * History of atrial fibrillation * PFO noted on 2-D echo. * Hypertension * History of migraine headaches. Plan: * Patient has been started on Apixaban 2.5 mg twice a day. * Patient was taking 2 tablets of aspirin 81 mg daily, prior to arrival. Suggested her to decrease it to one tablet daily (antiplatelet medication necessary due to presence of cardiac stent in the past). * 2-D echo showed atrial fibrillation. Left ventricle is mildly dilated. Left- ventricular EF 45-50%. Mild concentric LVH. Left atrium is severely dilated. Possible PFO. Moderate aortic regurgitation. Mild to moderate mitral regurgitation. * Hemoglobin A1c 5.6. * We will repeat computed tomography scan of the head, to rule out any evidence of intracranial bleed. If negative, then clear for discharge.
[2019-04-29] MEDS ORDERED: LEVOTHYROXINE 100 MCG TAB PO SCH (06:30)
== END 2019-04-25 17:15 | disposition home or self-care (01) ==
LOC: EC 14:17 → INTOOBSV 15:51 → 3SCARD 15:51 → UNDODISIN 04-25 17:15
PROVIDERS: ADMIT Internal Medicine; ATTEND Internal Medicine
DX: G45.9 Transient cerebral ischemic attack, unspecified (principal); E87.1 Hypo-osmolality and hyponatremia; I10 Essential (primary) hypertension; I48.19 Other persistent atrial fibrillation; E78.5 Hyperlipidemia, unspecified; R51 Headache; I08.1 Rheumatic disorders of both mitral and tricuspid valves; I08.0 Rheumatic disorders of both mitral and aortic valves; E66.9 Obesity, unspecified; Z68.27 Body mass index [BMI] 27.0-27.9, adult; E89.0 Postprocedural hypothyroidism; H91.90 Unspecified hearing loss, unspecified ear; Z86.73 Personal history of transient ischemic attack (TIA), and cerebral infarction without residual deficits; Z79.890 Hormone replacement therapy; Z79.899 Other long term (current) drug therapy; Z79.82 Long term (current) use of aspirin; Z88.0 Allergy status to penicillin; Z88.1 Allergy status to other antibiotic agents; Z87.891 Personal history of nicotine dependence; Z96.652 Presence of left artificial knee joint
CPT/HCPCS: 96360; 96361; 93005 ×2; 99291; 36415; 94640 ×2; 93306; 97161; 97166; 92523; 80061; 80053 ×2; 82550; 82553; 84295; 84484; 85025 ×2; 85610; 85730; 83036; 71046; 93880; 70496; 70450 ×2; 70498; G0378 ×3; Q9967

== ENCOUNTER → 2020-09-09 | Outpatient (CLI) | payer MEDICARE ==
--- NOTE | 2020-09-09 12:07 | XR ---
EXAMINATION TYPE: XR chest 2V DATE OF EXAM: 09/09/2020 COMPARISON: 04/23/2019 TECHNIQUE: PA and lateral views submitted. HISTORY: Cough FINDINGS: The lungs are clear and there is no pneumothorax, pleural effusion, or focal pneumonia. Heart is en larged. Use osteopenia and arthropathy of the shoulders. Bibasilar subsegmental consolidation. Vascul ar calcifications and degenerative change of the spine. IMPRESSION: 1. Severe cardiomegaly.
== END | disposition home or self-care (01) ==
LOC: RADXRMAIN 10:24
PROVIDERS: ATTEND Internal Medicine
DX: R05 Cough (principal)
CPT/HCPCS: 71046